=== PATIENT | female | born 1990 | race Caucasian/White ===

== ENCOUNTER 2020-04-13 20:45 | Emergency (ER) | payer MEDICAID, SELFPAY ==
[2020-04-13 20:52] VITALS: BP 164/113; PULSE 80; RESP 18; TEMP 36.8; O2SAT 96; BMI 42.2
--- NOTE | 2020-04-14 00:15 | ED_ITS ---
HPI - Dizziness General: Chief Complaint: Dizziness Stated Complaint: DIZZY Time Seen by Provider: 04/14/20 00:07 Source: patient Mode of arrival: ambulatory Limitations: no limitations History of Present Illness: HPI Narrative: Patient went and seen Radha Trimble. Patient was started on 3 different medications and became really anxious with her medications that she was started on. Patient was placed on Wellbutrin 150 twice a day, escitalopram 10 mg daily, and propranolol 20 mg twice a day. Patient stopped the Wellbutrin because it increased her anxiety. Patient was c oncerned due to her blood pressure being 160 systolic. She came into the ER for evaluation due to her elevation in her blood pressure. Review of Systems General: Reports: 10 or more systems reviewed and unremarkable except in HPI and below Psych: Reports: anxiety PFSH ED PFSH: Medical History (Updated 04/14/20 @ 00:22 by KISHAN Hansen) Asthma History of miscarriage twins Surgical History (Updated 04/11/20 @ 17:09 by SHAWN Andujar) History of cholecystectomy 2013 History of dilation and curettage Family History Other Cancer Dementia Heart disease Hypertension Social History Smoking and tobacco status: current every day smoker Second hand smoke exposure: Yes Smoking risk assessment/counseling performed?: Yes Alcohol intake: unknown Desire information about alcohol rehabilitation?: No Counseling given: No Desire information about substance/drug rehabilitation?: No Counseling given: No Adopted: No Caregiver/support person: No Lives independently: Yes Household members: significant other Marital status: Legally Number of children: 5 service: No Current occupational status: unemployed History of recent travel: No Current gender identity: Female Female Reproductive History: Date of last menstrual period: 04/02/20 Para: 2 Spontaneous abortions: Yes (4) Physical Exam Const: COMMON NORMALS: no acute distress and patient oriented x3 GENERAL APPEARANCE: cooperative HENMT: COMMON NORMALS: normocephalic and Normal external nose present HEAD & SCALP: normal to inspection and normocephalic NOSE: Normal external nose present Eye: GENERAL EYE: appearance normal, both eyes and all related structures Neck/C-Spine: COMMON NORMALS: full ROM Chest: COMMONS NORMALS: normal inspection of the chest Resp: COMMON NORMALS: normal respiratory effort EFFORT & INSPECTION: Yes able to speak in complete sentences Cardio: COMMON NORMALS: regular rate and regular rhythm RATE: regular rate RHYTHM: regular rhythm GI: COMMON NORMALS: non-tender Back/Pelvis: COMMON NORMALS: thoracic and lumbar spine normal to inspection Extremity: COMMON NORMALS: normal to inspection Neuro: COMMON NORMALS: patient oriented x3 and moves all extremities Psych: COMMON NORMALS: mental status grossly normal and cooperative Skin: COMMON NORMALS: no rashes or lesions noted GENERAL SKIN EXAM: no rashes or lesions noted Course Vital Signs: Vital signs: Vital Signs Temperature 98.3 F 04/13/20 20:52 Pulse Rate 78 04/14/20 00:20 Respiratory Rate 17 04/14/20 00:19 Blood Pressure 178/113 04/14/20 00:20 Pulse Oximetry 98 04/14/20 00:19 MDM - Dizziness MDM Narrative: Medical decision making narrative: Patient comes in today for concerns of elevation in her blood pressure after being started on new medication. Patient appears well. Respirations are even lungs are clear to auscultation. 5 anxiety patient has no other signs or symptoms. Vital signs were normal except for mild elevation of blood pressure at 164 systolic. Differential diagnosis includes but not limited to uncontrolled hypertension, anxiety, depression. Reviewed exam with patient with recommendations for smoking cessation, healthy diet and exercise, and weight loss. Recommended patient stop the Wellbutrin at this time due to her increased anxiety with it. Discussed continuing on the S-Citalopram and the propranolol. Discussed may be taken the propranolol just at bedtime at first due to feeling rundown with the medication when he first started. Patient then can increase to twice a day dosing as she becomes tolerant of the medication. Reassured patient that the blood pressure she will come down especially if she would work hard to stop smoking and to try to eat healthier and exercise more routinely. Patient reported understanding of care plan and agreed to plan. Discharge Plan Discharge Patient Disposition: Home Clinical Impression: Essential (primary) hypertension, Anxiety with depression Adverse reaction to drug Qualifiers: Encounter type: initial encounter Qualified Code(s): T50.905A - Adverse effect of unspecified drugs, medicaments and biological substances, initial encounter Condition: Stable Prescriptions: Discontinued bupropion HCl [Wellbutrin SR] 150 mg tablet sustained-release 12 hr 150 mg PO Q12H Qty: 60 RF: 0 No Action propranolol 20 mg tablet 20 mg PO BID Qty: 60 RF: 0 escitalopram oxalate [Lexapro] 10 mg tablet 10 mg PO DAILY Qty: 30 RF: 0 Referrals: Radha Trimble FNP-C [Primary Care Provider] - Discharge Diet: Usual diet Discharge Activity: Increase activity as tolerated Patient Instructions: Hypertension (ED) Activity Restrictions/Additional Instructions: Stop the Wellbutrin until follow-up with primary care. Continue with escitalopram and propranolol as instructed. Continue stopping smoking. Try to eat a healthier diet with more fruits and vegetables nuts and legumes. Follow- up with primary care as scheduled. Return to the emergency department for new concerns. Coding Level of Care Code ED Hard Tile Setter for Gennaro Pichardo Exam Comprehensive
[2020-04-14 00:19] VITALS: BP 178/108; PULSE 75; RESP 17; O2SAT 98
[2020-04-14 00:20] VITALS: BP 169/123; BP 178/113; BP 184/122; PULSE 78; PULSE 84; PULSE 90
[2020-04-14 01:04] VITALS: BP 175/100; PULSE 92; RESP 16; O2SAT 96
[2020-04-14] MEDS: LORazepam 1 mg Tablet 0.5 MG PO (01:35)
[2020-04-14 02:04] VITALS: BP 165/103; PULSE 81; RESP 16; O2SAT 96
[2020-04-14 02:10] VITALS: BP 158/107; PULSE 72; RESP 15; O2SAT 96
== END 2020-04-14 02:09 | disposition home or self-care (01) ==
PROVIDERS: Emergency Provider Nurse Practitioner Family; PCP Nurse Practitioner
DX: I10 Essential (primary) hypertension (principal); F41.8 Other specified anxiety disorders; T50.905A Adverse effect of unspecified drugs, medicaments and biological substances, initial encounter; F17.210 Nicotine dependence, cigarettes, uncomplicated
CPT/HCPCS: 12345; 99282; 99283

== ENCOUNTER → 2020-04-20 11:17 | Outpatient (BNVA) | payer MEDICAID, SELFPAY | PROVIDERS: PCP Nurse Practitioner; Visit Provider Nurse Practitioner | DX: G89.29 Other chronic pain (principal); M54.2 Cervicalgia; M54.9 Dorsalgia, unspecified | CPT/HCPCS: 72040; 72100 ==

== ENCOUNTER → 2020-05-04 14:19 | Outpatient (BNVA) | payer MEDICAID, SELFPAY | PROVIDERS: PCP Nurse Practitioner; Visit Provider Nurse Practitioner Family | DX: L03.114 Cellulitis of left upper limb (principal); M25.522 Pain in left elbow | CPT/HCPCS: 73080; 85025 ==

== ENCOUNTER → 2020-07-12 11:04 | Outpatient (BNVA) | payer MEDICAID, SELFPAY | PROVIDERS: PCP Nurse Practitioner; Visit Provider Nurse Practitioner Family | DX: I10 Essential (primary) hypertension (principal); Z79.899 Other long term (current) drug therapy | CPT/HCPCS: 80053; 80061; 84443; 85025 ==

== ENCOUNTER 2020-09-06 14:55 | Outpatient (CLI) | payer MEDICAID, SELFPAY ==
--- NOTE | 2020-09-06 15:00 | USCV_ITS ---
Ilene Echevarria Age: 29 Gender: F : 1990 Exam Date: 09/06/2020 15:09 Ordering Phys: Rose Marie Kimball MD ([email or web address]) Technologist: Rianna Chacko Exam Location: [facility] [place] Indication: OTHER CHEST PAIN BP: 131 / 64 HR: 80 Rhythm: Sinus Technical Quality: Suboptimal MEASUREMENTS (Male / Female) Normal Values 2D ECHO LV Diastolic Diameter PLAX 4.0 cm 4.2 - 5.9 / 3.9 - 5.3 cm LV Systolic Diameter PLAX 3.0 cm IVS Diastolic Thickness 0.9 cm 0.6 - 1.0 / 0.6 - 0.9 cm IVS Systolic Thickness 0.9 cm LVPW Diastolic Thickness 1.5 cm 0.6 - 1.0 / 0.6 - 0.9 cm LVPW Systolic Thickness 1.8 cm LVOT Diameter 2.0 cm LV Ejection Fraction 2D Teich 49.7 % LV Ejection Fraction MOD 2C 74.4 % LV Ejection Fraction 2C AL 74.3 % LA Diameter 3.1 cm LA Width 3.4 cm LA Height 4.0 cm RA Width 2.9 cm RA Height 3.7 cm Aorta at Sinotubular Diameter 2.9 cm M-MODE LV Diastolic Diameter MM 4.0 cm 4.2 - 5.9 / 3.9 - 5.3 cm LV Systolic Diameter MM 2.3 cm LV Ejection Fraction MM Teich 74.3 % IVS Diastolic Thickness MM 1.4 cm 0.6 - 1.0 / 0.6 - 0.9 cm IVS Systolic Thickness MM 1.9 cm LVPW Diastolic Thickness MM 1.8 cm 0.6 - 1.0 / 0.6 - 0.9 cm LVPW Systolic Thickness MM 1.3 cm Aortic Annulus Diameter 3.0 cm LA Ao Ratio MM 1.1 MV E Point Septal Separation 0.8 cm DOPPLER AV Peak Velocity 129.0 cm/s LVOT Peak Velocity 110.0 cm/s AV Area Cont Eq vti 2.6 cm squared AV Area Cont Eq pk 2.5 cm squared MV Area PHT 5.0 cm squared Mitral E to A Ratio 1.0 MV E' Velocity 43.0 cm/s Mitral E to MV E' Ratio 4.1 Mitral E to LV E' Lateral Ratio 4.0 Mitral E to LV E' Septal Ratio 4.1 TR Peak Velocity 181.0 cm/s TR Peak Gradient 13.1 mmHg TV Peak E Velocity 71.0 cm/s Right Atrial Pressure 3.0 mmHg Pulmonary Artery Systolic Pressu 16.1 mmHg PV Peak Velocity 63.0 cm/s RV Acceleration Time 0.1 s RV Ejection Time 0.3 s RV AcT/ET 0.5 FINDINGS Left Ventricle Normal left ventricular size and systolic function, EF 77 %. No regional wall motion abnormalities. Right Ventricle The right ventricle is normal in size and function. Right Atrium The right atrium is normal in size. Left Atrium The left atrium is normal in size. Mitral Valve No gross abnormalities noted Aortic Valve No gross abnormalities noted Tricuspid Valve Trace tricuspid valve regurgitation. Pulmonic Valve Pulmonic valve not well visualized. Pericardium Normal pericardium without effusion. Aorta Normal ascending aorta dimension. CONCLUSIONS Normal left ventricular size and systolic function, EF 77 %. No regional wall motion abnormalities. Trace tricuspid valve regurgitation. There is no pericardial effusion. There are no intracardiac masses. No previous study is available for comparison. Dr Rose Marie Kimball MD FACC (Electronically Signed) Final Date: 07 September 2020 10:04 S
== END 2020-09-06 14:56 | disposition home or self-care (01) ==
PROVIDERS: PCP Nurse Practitioner; Visit Provider Internal Medicine Cardiovascular Disease
DX: R07.89 Other chest pain (principal)
CPT/HCPCS: 93306

== ENCOUNTER → 2020-10-24 16:15 | Outpatient (BNVA) | payer MEDICAID, SELFPAY | PROVIDERS: PCP Nurse Practitioner; Visit Provider Internal Medicine Cardiovascular Disease | DX: R07.89 Other chest pain (principal); R06.00 Dyspnea, unspecified; I50.33 Acute on chronic diastolic (congestive) heart failure; I10 Essential (primary) hypertension | CPT/HCPCS: 80048; 83880 ==

== ENCOUNTER 2020-10-31 08:19 | Outpatient (CLI) | payer MEDICAID, SELFPAY ==
[2020-10-31 08:38] VITALS: BMI 42.5
[2020-10-31 08:47] VITALS: BP 153/45; PULSE 99
--- NOTE | 2020-10-31 09:15 | ECG_ITS ---
[facility] Test Date: 2020-10-31 Pat Name: Ilene Echevarria Department: Room: Gender: Female Seed Analyst: Triny Warren : 1990 Requested By: Rose Marie Kimball Order Number: [id number] Randolph MD: Rose Marie Kimball M.D. Interpretive Statements NAME OF STUDY: TREADMILL STRESS TEST INDICATION: Chest Pain, PROCEDURE: At the baseline, the patient's blood pressure was 100/56 with a heart rate of 90. The baseline electrocardiogram showed normal sinus rhythm with some nonspecific T wave changes. Poor R wave progression. The patient exercised for 5 minutes and 9 seconds on a modified Jaylan protocol. Patient attained a maximum heart rate of 165 beats per minute(85% of the maximum predicted heart rate) with a blood pressure at the peak exercise of 166/68 mm Hg. The EKG at the peak exercise revealed diffuse nonspecific ST-T changes. Patient did not have any chest pain or any significant cardiac arrhythmias with the exercise During the recovery phase, there were no new changes. Blood pressure at the end of the recovery phase was 144/63 mm Hg with a heart rate of 99 per minute. CONCLUSION: 1. Nonspecific EKG response to treadmill exercise 2. No exercise-induced chest pain or cardiac arrhythmia 3. Impaired exercise tolerance, attained a maximum of 6.1 METs Electronically Signed On 11-10-2020 8:54:07 CDT by Rose Marie Kimball M.D. [email or web address]
== END 2020-10-31 08:20 | disposition home or self-care (01) ==
LOC: CDL 08:20
PROVIDERS: PCP Nurse Practitioner; Visit Provider Internal Medicine Cardiovascular Disease
DX: R07.9 Chest pain, unspecified (principal)
CPT/HCPCS: 93017

== ENCOUNTER 2020-12-05 13:53 | Outpatient (CLI) | payer MEDICAID, SELFPAY ==
--- NOTE | 2020-12-05 14:15 | USCV_ITS ---
Ilene Echevarria Age: 30 Gender: F : 1990 Exam Date: 12/05/2020 14:28 Ordering Phys: Petra Avila PROGRAM COUNSELOR-Lance Technologist: BRIAN Exam Location: [facility] [place] Indication: PRIOR RT ANKLE FX. WITH ORIF. NOW PAIN AND AT TIME COLDNESS Risk Factors: Unknown Previous Vascular Surgery: ORIF RT ANKLE FX RIGHT LEFT BP: 124.0 / 54.00 BP: 104.0/ 44.00 0 0 Waveform Velocity (cm/s) Velocity (cm/s) Waveform Triphasic 194.1 Iliac Prox Biphasic Iliac Mid 194.1 Monophasic 144.7 Iliac Distal Triphasic 158.4 WOMEN'S SWIM COACH Triphasic 143.0 SFA Prox Biphasic 131.1 SFA Mid Biphasic 103.3 SFA Dist Triphasic POP 67.0 Biphasic 85.4 REGIONAL ACCOUNT MANAGER Biphasic 105.0 DPA 0.9 SHELDON FINDINGS RT REGIONAL ACCOUNT MANAGER 110 RT DPA 100 Resting SHELDON of 0.9 on the right side. CONCLUSIONS 1. Slightly diminished resting SHELDON . 8 9 on the right side, may size to mild obstructive arterial disease. No previous studies are available for comparison Dr Rose Marie Kimball MD [facility] (Electronically Signed) Final Date: 05 December 2020 18:48 S
--- NOTE | 2020-12-05 15:00 | XRR_ITS ---
PROCEDURE INFORMATION: Exam: XR Right Ankle Exam date and time: 12/05/2020 2:01 PM Age: 30 years old Clinical indication: Ankle and foot; Left; Prior surgery; Patient HX: RT ankle pain per patient; Additional info: M25.572 - pain in left ankle and joints of left foot TECHNIQUE: Imaging protocol: XR Right ankle. Views: 3 or more views. COMPARISON: CR Ankle 3 views, RIGHT* [id number] 03/03/2016 6:32 PM FINDINGS: Bones/joints: There is a comminuted interarticular displaced fracture of the distal shaft and metaphysis of the tibia. Transverse displaced fracture is seen in the distal shaft of the fibula. The patient is status post ORIF with metallic plate and screws in place in the tibia and fibula. The bones show anatomic alignment. Soft tissues: Normal. XR/XR ankle RT min 3V* [id number] IMPRESSION: 1. Comminuted displaced fractures tibia and fibula status post ORIF. 2. Otherwise negative examination
== END 2020-12-05 13:54 | disposition home or self-care (01) ==
PROVIDERS: PCP Nurse Practitioner; Visit Provider Nurse Practitioner Family
DX: M25.572 Pain in left ankle and joints of left foot (principal); L81.9 Disorder of pigmentation, unspecified; M79.89 Other specified soft tissue disorders; S82.201A Unspecified fracture of shaft of right tibia, initial encounter for closed fracture; S82.401A Unspecified fracture of shaft of right fibula, initial encounter for closed fracture; X58.XXXA Exposure to other specified factors, initial encounter
CPT/HCPCS: 73610; 93926

== ENCOUNTER → 2021-03-28 13:44 | Outpatient (BNVA) | payer MEDICAID, SELFPAY | PROVIDERS: PCP Nurse Practitioner; Visit Provider Nurse Practitioner Family | DX: I10 Essential (primary) hypertension (principal); E78.5 Hyperlipidemia, unspecified; F41.8 Other specified anxiety disorders | CPT/HCPCS: 80053; 80061; 84443; 85025 ==

== ENCOUNTER 2021-05-17 11:24 | Outpatient (CLI) | payer MEDICAID, SELFPAY ==
--- NOTE | 2021-05-17 11:45 | US_ITS ---
WS: [id number] INDICATION: Splinter in wrist TECHNIQUE: Ultrasound soft tissue area of concern right wrist. FINDINGS: No evidence of echogenic foreign body or object. No evidence of abscess or drainable fluid collection. No free fluid. No suspicious findings. US/US soft tissue/extremity [id number] IMPRESSION: No suspicious findings
== END 2021-05-17 11:25 | disposition home or self-care (01) ==
LOC: US 11:26
PROVIDERS: PCP Nurse Practitioner Family; Visit Provider Nurse Practitioner Family
DX: M79.639 Pain in unspecified forearm (principal); M79.89 Other specified soft tissue disorders
CPT/HCPCS: 76882

== ENCOUNTER → 2021-06-20 13:22 | Outpatient (BNVA) | payer MEDICAID, SELFPAY | PROVIDERS: PCP Nurse Practitioner Family; Visit Provider Nurse Practitioner | DX: R05.9 Cough, unspecified (principal); Z20.822 Contact with and (suspected) exposure to COVID-19 | CPT/HCPCS: 87426 ==

== ENCOUNTER → 2021-06-22 10:41 | Outpatient (BNVA) | payer MEDICAID, SELFPAY | PROVIDERS: PCP Nurse Practitioner Family; Visit Provider Nurse Practitioner | DX: R05.9 Cough, unspecified (principal); R09.89 Other specified symptoms and signs involving the circulatory and respiratory systems; Z20.822 Contact with and (suspected) exposure to COVID-19 | CPT/HCPCS: 87635 ==

== ENCOUNTER 2021-09-26 12:35 | Emergency (ER) | payer MEDICAID, SELFPAY ==
[2021-09-26 12:56] VITALS: BP 151/84; PULSE 93; RESP 16; TEMP 36.6; O2SAT 97
--- NOTE | 2021-09-26 13:17 | USCV_ITS ---
Ilene Echevarria Age: 30 Gender: F : 1990 Exam Date: 09/26/2021 13:40 Ordering Phys: Luzmaria Asher Technologist: FEDERICO Exam Location: [facility] – [place] Indication: Leg swelling / patient claims feeling knot in LT lower leg HISTORY: Leg swelling / patient claims feeling knot in LT lower leg PROCEDURES: Venous duplex imaging was performed in only the left lower extremity. The following venous structures were evaluated: common femoral vein, profunda vein, proximal portion of the greater saphenous vein, superficial femoral vein, and the popliteal vein. In addition, the posterior tibial and peroneal trunk were evaluated. FINDINGS: Normal 2-D Doppler and augmentation and compressibility throughout the lower extremity venous structures. Additional imaging through the proximal calf veins also reveals no thrombus. Limited evaluation of the greater saphenous vein is patent with no thrombus. CONCLUSIONS No DVT left lower extremity. Dr. Huma Soliz DO (Electronically Signed) Final Date: 26 September 2021 15:43 S
--- NOTE | 2021-09-26 13:17 | ED_ITS ---
HPI - Extremity Problem General: Chief complaint: Extremity Problem,Nontraumatic Stated complaint: L leg hard spot, pain when touched Time Seen by Provider: 09/26/21 13:03 Source: patient Mode of arrival: ambulatory Limitations: no limitations History of Present Illness: Patient is a 30-year-old female presents to ED today with complaints of swelling to her left lower extremity and a knot . She states symptoms been present over the past 3 days. No previous history of blood clots. She is not on hormones. No periods of prolonged inactivity. No recent surgeries. She does not complain of shortness of breath. She has not noticed any redness or warmth to the extremity. States she was sent here from PCP for US. MD Complaint: extremity pain and extremity swelling Onset (ago): day(s) Pain Consistency: constant Location: left and lower extremity Radiation: none Associated symptoms: Reports no associated symptoms; Deny chest pain or fever(s) Review of Systems Const: Denies: fever(s), chills, body aches, fatigue or malaise Card: Denies: chest pain Resp: Denies: dyspnea GI: Denies: abdominal pain Musc: Reports: extremity pain and extremity swelling; Denies: joint pain, joint swelling, joint redness or joint warmth Skin/Breast: Denies: new lesions or changes in skin color Neuro: Denies: numbness in extremities, weakness in extremities, sensory changes or difficulty walking PFS ED PFSH: Medical History Asthma History of miscarriage twins Hx of hyperlipidemia Nonspecific ST-T wave electrocardiographic changes The EKG from today revealed normal sinus rhythm with some nonspecific T wave changes. Normal QRS duration. Normal ID interval and no signs of any preexcitation. Surgical History History of cholecystectomy 2013 History of dilation and curettage History of fracture right lower leg, rods and screws Family History Mother Cancer Diabetes Grandmother Cancer Father Diabetes Hypertension Hyperlipidemia Denies family history of CAD (coronary artery disease) Clotting disorder Dementia Heart disease Chronic kidney disease (CKD) Suicide Anesthesia complication Bleeding disorder Family history of premature coronary artery disease Lung disease Stroke Social History Smoking and tobacco status: current every day smoker Second hand smoke exposure: Yes Smoking risk assessment/counseling performed?: Yes Alcohol intake: former Desire information about alcohol rehabilitation?: No Counseling given: No Desire information about substance/drug rehabilitation?: No Counseling given: No Adopted: No Caregiver/support person: No Lives independently: Yes Household members: significant other Marital status: Legally Number of children: 5 service: No Current occupational status: unemployed History of recent travel: No Current gender identity: Female Female Reproductive History: Para: 2 Spontaneous abortions: Yes (4) Physical Exam Const: COMMON NORMALS: no acute distress, patient oriented x3, no limitations and alert GENERAL APPEARANCE: cooperative NUTRITIONAL APPEARANCE: obese ORIENTATION/CONSCIOUSNESS: Yes awake, Yes oriented to person, Yes oriented to place and Yes oriented to time Resp: COMMON NORMALS: normal respiratory effort and clear to auscultation bilaterally AUSCULTATION: clear to auscultation bilaterally Cardio: COMMON NORMALS: regular rate and regular rhythm RATE: regular rate RHYTHM: regular rhythm Extremity: LEFT LOWER EXTREMITY: Yes lower leg OTHER: I do not appreciate any obvious swelling to her L LE; her calf is supple with a negative Alfonso's; she reports tenderness to her anterior tibial shaft and states she can feel a knot here; I don't appreciate any palpable cords; no r edness/warmth; NV intact Neuro: COMMON NORMALS: patient oriented x3 SENSORIUM/ORIENTATION: Yes alert, Yes oriented to person, Yes oriented to place and Yes oriented to time Course Vital Signs: Vital signs: Vital Signs Temperature 97.8 F 09/26/21 12:56 Pulse Rate 105 H 09/26/21 13:22 Respiratory Rate 18 09/26/21 13:22 Blood Pressure 137/79 09/26/21 13:22 Pulse Oximetry 97 09/26/21 13:22 MDM - Extremity (Nontraumatic) Medical Decision Making No abnormalities detected on US. Recommend conservative tx and follow up with PCP. Return to ED precautions verbally given to patient. Imaging Data US L LE venous: Radiologist's impression: per US tech-no DVT, no superficial thrombus, no abnormalities noted to area of patient discomfort Discharge Plan Discharge Patient Disposition: Home Clinical Impression: Pain in left leg Condition: Stable Prescriptions: No Action gabapentin 100 mg capsule 100 mg PO TID 0RF buprenorphine HCl 8 mg tablet, sublingual 8 mg sublingual TID 0RF ibuprofen 800 mg tablet 800 mg PO Q12H PRN (Reason: pain) Qty: 60 2RF potassium chloride [Klor-Con 10] 10 mEq tablet extended release 10 meq PO DAILY 30 Days Qty: 30 2RF magnesium oxide 400 mg magnesium tablet 400 mg PO BID 30 Days Qty: 60 2RF losartan 50 mg tablet 50 mg PO DAILY 30 Days Qty: 30 2RF chlorthalidone 25 mg tablet 25 mg PO DAILY 30 Days Qty: 30 2RF buspirone 30 mg tablet 30 mg PO BID PRN (Reason: anxiety) 30 Days Qty: 60 2RF labetalol 100 mg tablet 100 mg PO BID Qty: 180 3RF Discharge Orders: Discharge ED (Routine); Ordered 09/26/21 Ordered By: Luzmaria Asher Referrals: Petra Avila FNP-C [Primary Care Provider] - Coding Level of Care Code ED Senior Radiation Therapist for Chg Fwd Exam Expanded Problem Focused
[2021-09-26 13:22] VITALS: BP 137/79; PULSE 105; RESP 18; O2SAT 97
== END 2021-09-26 15:25 | disposition home or self-care (01) ==
PROVIDERS: Emergency Provider Physician Assistant; PCP Nurse Practitioner Family
DX: M79.605 Pain in left leg (principal); E78.5 Hyperlipidemia, unspecified; F17.210 Nicotine dependence, cigarettes, uncomplicated
CPT/HCPCS: 93971; 99283

== ENCOUNTER 2021-10-02 20:00 | Outpatient (CLI) | payer MEDICAID, SELFPAY | END 2021-10-02 20:01 | disposition home or self-care (01) | LOC: SLEEP 10-03 09:07 | PROVIDERS: PCP Nurse Practitioner Family; Visit Provider Nurse Practitioner Family | DX: G47.10 Hypersomnia, unspecified (principal) | CPT/HCPCS: 95810 ==

== ENCOUNTER 2021-10-04 14:02 | Outpatient (CLI) | payer MEDICAID, SELFPAY ==
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
--- NOTE | 2021-10-04 14:18 | XR_ITS ---
WS: [id number] XR thoracic spine 3V* [id number] REASON FOR EXAM: M54.9 - Dorsalgia, unspecified FINDINGS: Normal thoracic spine alignment. No focal vertebral body abnormality. Normal intervertebral disc spaces. XR/XR thoracic spine 3V* [id number] IMPRESSION: No significant abnormality.
== END 2021-10-04 14:03 | disposition home or self-care (01) ==
PROVIDERS: PCP Nurse Practitioner Family; Visit Provider Nurse Practitioner Family
DX: M54.9 Dorsalgia, unspecified (principal); S13.4XXA Sprain of ligaments of cervical spine, initial encounter; V89.2XXA Person injured in unspecified motor-vehicle accident, traffic, initial encounter
CPT/HCPCS: 72040; 72072

== ENCOUNTER → 2021-12-04 13:40 | Outpatient (BNVA) | payer MEDICAID, SELFPAY | PROVIDERS: PCP Nurse Practitioner Family; Visit Provider Nurse Practitioner Family | DX: M25.562 Pain in left knee (principal) | CPT/HCPCS: 73562 ==

== ENCOUNTER 2022-01-01 16:59 | Outpatient (CLI) | payer MEDICAID, SELFPAY ==
[2022-01-01 17:46] LABS: Basophils # 0.1 10^3/uL (0.0-0.1); Basophils % 0.8 %; Eosinophils # 0.2 10^3/uL (0.0-0.8); Eosinophils % 2.4 %; Hematocrit 39.7 % (37.0-47.0); Hemoglobin 13.6 g/dL (11.5-15.3); Lymphocytes # 2.6 10^3/uL (0.8-4.8); Lymphocytes % 25.9 %; Mean Corpuscular HGB Conc 34.3 g/dL (30.0-36.0); Mean Corpuscular Hemoglobin 30.3 pg (28.0-34.0); Mean Corpuscular Volume 88.4 fl (81-99); Mean Platelet Volume 9.4 fL (7.4-10.4); Monocytes # 0.6 10^3/uL (0.2-0.9); Monocytes % 5.7 %; Neutrophils # 6.61 10^3/uL (1.8-7.7); Nucleated Red Blood Cells % 0 %; Platelet Count 377 10^3/cmm (130-400); Red Blood Count 4.49 10^6/uL (4.1-5.3); Red Cell Distribution Width 13.1 % (12.1-15.1); White Blood Count 10.2 10^3/uL (4.0-10.0)
[2022-01-01 18:29] LABS: Alanine Aminotransferase 30 U/L (0-33); Albumin Level 4.3 g/dL (3.5-5.2); Alkaline Phosphatase 99 IU/L (35-105); Anion Gap 17.2 (5-19); Aspartate Amino Transferase 23 U/L (0-32); Blood Urea Nitrogen 12 mg/dL (6-20); Calcium 9.9 mg/dL (8.5-10.5); Carbon Dioxide 21 mmol/L (22-29); Chloride 103 mmol/L (98-107); Chol HDL Ratio 9.33 mg/dL (0.0-4.40); Cholesterol 280 mg/dL (0-200); Globulin 3.4 g/dL (1.3-4.6); Glomerular Filtration Rate 118.2 mL/min (90-130); Glucose 80 mg/dL (65-115); HDL Cholesterol 30 mg/dL (60-100); Osmolality Calculated 283 mOsm/kg (285-295); Potassium 4.2 mmol/L (3.5-5.1); Sodium 137 mmol/L (136-145); Thyroid Stimulating Hormone 2.29 uIU/mL (0.27-4.20); Total Bilirubin 0.2 mg/dL (0.15-1.2); Total Protein 7.7 g/dL (6.6-8.7); Triglycerides 529 mg/dL (0-150); VLDL Cholestrol Calculation 106 mg/dL (0-30); Vitamin B12 565 pg/mL (232-1245)
[2022-01-01 18:43] LABS: LDL Cholesterol Direct 165 mg/dL (0-100)
== END 2022-01-01 17:00 | disposition home or self-care (01) ==
LOC: LAB 17:01
PROVIDERS: Nurse Practitioner Family; PCP Nurse Practitioner; Visit Provider Nurse Practitioner
DX: I10 Essential (primary) hypertension (principal)
CPT/HCPCS: 36415; 80053; 80061; 82607; 83721; 84443; 85025

== ENCOUNTER 2022-05-18 16:20 | Outpatient (CLI) | payer MEDICAID, SELFPAY ==
[2022-05-18 18:02] LABS: Alanine Aminotransferase 15 U/L (0-33); Albumin Level 4.2 g/dL (3.5-5.2); Alkaline Phosphatase 88 U/L (35-105); Anion Gap 17.4 (5-19); Aspartate Amino Transferase 15 U/L (0-32); Blood Urea Nitrogen 12 mg/dL (6-20); Calcium 9.2 mg/dL (8.5-10.5); Carbon Dioxide 20 mmol/L (22-29); Chloride 103 mmol/L (98-107); Chol HDL Ratio 8.88 mg/dL (0.0-4.40); Cholesterol 284 mg/dL (0-200); Globulin 3.9 g/dL (1.3-4.6); Glomerular Filtration Rate 98.9 mL/min (90-130); Glucose 81 mg/dL (65-115); HDL Cholesterol 32 mg/dL (60-100); LDL Cholesterol Calculated 214 mg/dL (50-129); Osmolality Calculated 281 mOsm/kg (285-295); Potassium 4.4 mmol/L (3.5-5.1); Sodium 136 mmol/L (136-145); Thyroid Stimulating Hormone 1.48 uIU/mL (0.27-4.20); Total Bilirubin 0.2 mg/dL (0.15-1.2); Total Protein 8.1 g/dL (6.6-8.7); Triglycerides 191 mg/dL (0-150); VLDL Cholestrol Calculation 38 mg/dL (0-30)
== END 2022-05-18 16:21 | disposition home or self-care (01) ==
LOC: LAB 16:22
PROVIDERS: PCP Nurse Practitioner; Visit Provider Nurse Practitioner
DX: R00.0 Tachycardia, unspecified (principal); E78.2 Mixed hyperlipidemia
CPT/HCPCS: 80053; 80061; 84443

== ENCOUNTER → 2022-07-16 14:09 | Outpatient (BNVA) | payer MEDICAID, SELFPAY | PROVIDERS: PCP Nurse Practitioner; Visit Provider Nurse Practitioner | DX: E78.2 Mixed hyperlipidemia (principal); E88.81 Metabolic syndrome and other insulin resistance | CPT/HCPCS: 80053; 80061; 85025 ==

== ENCOUNTER → 2022-08-02 15:50 | Outpatient (BNVA) | payer MEDICAID, SELFPAY | PROVIDERS: PCP Nurse Practitioner; Visit Provider Nurse Practitioner | DX: J02.9 Acute pharyngitis, unspecified (principal); Z20.822 Contact with and (suspected) exposure to COVID-19; R11.2 Nausea with vomiting, unspecified | CPT/HCPCS: 87426; 87486; 87581; 87633; 87880 ==

== ENCOUNTER → 2022-10-03 14:21 | Outpatient (BNVA) | payer MEDICAID, SELFPAY | PROVIDERS: PCP Nurse Practitioner; Visit Provider Nurse Practitioner Family | DX: M79.604 Pain in right leg (principal); Z87.81 Personal history of (healed) traumatic fracture | CPT/HCPCS: 73590 ==

== ENCOUNTER → 2022-10-31 11:29 | Outpatient (BNVA) | payer MEDICAID, SELFPAY | PROVIDERS: PCP Nurse Practitioner; Referring Provider Nurse Practitioner Family; Visit Provider Specialist | DX: T84.84XA Pain due to internal orthopedic prosthetic devices, implants and grafts, initial encounter (principal); Y79.2 Prosthetic and other implants, materials and accessory orthopedic devices associated with adverse incidents; M25.571 Pain in right ankle and joints of right foot; G89.29 Other chronic pain; M79.671 Pain in right foot | CPT/HCPCS: 73590; 73630; 99205 ==

== ENCOUNTER → 2022-12-18 14:44 | Outpatient (BNVA) | payer MEDICAID, SELFPAY | PROVIDERS: PCP Nurse Practitioner; Visit Provider Nurse Practitioner | DX: N91.2 Amenorrhea, unspecified (principal) | CPT/HCPCS: 81025 ==

== ENCOUNTER 2022-12-21 18:03 | Emergency (ER) | payer MEDICAID, SELFPAY ==
--- NOTE | 2022-12-21 18:04 | USR_ITS ---
PROCEDURE INFORMATION: Exam: US Duplex Left Lower Extremity Veins, Limited Exam date and time: 12/21/2022 6:31 PM Age: 32 years old Clinical indication: Pain; Leg, lower; Left; Additional info: Swelling TECHNIQUE: Imaging protocol: Real-time duplex ultrasound of the left extremity with 2-D rodriguez scale, color Doppler flow and spectral waveform analysis including responses to compression and other maneuvers (when performed) with image documentation. Limited exam focused on the left lower extremity veins. COMPARISON: US soft tissue/extremity [id number] 05/17/2021 11:34 AM FINDINGS: Left deep veins: Unremarkable. The common femoral, femoral, proximal profunda femoral and popliteal veins are patent without thrombus. Normal Doppler waveforms. Normal compressibility and/or augmentation response. Left superficial veins: Unremarkable. Saphenofemoral junction is patent without thrombus. Soft tissues: Subcutaneous edema noted in the lower [place]. US/[place] [id number] IMPRESSION: No evidence of deep vein thrombosis.
[2022-12-21 18:11] VITALS: BP 130/77; PULSE 84; RESP 16; TEMP 36.8; O2SAT 100; BMI 40.4
[2022-12-21 20:13] LABS: Partial Thromboplastin Time 23.3 SECONDS (23.9-36.7)
[2022-12-21 20:18] LABS: Alanine Aminotransferase 15 U/L (0-33); Alkaline Phosphatase 73 U/L (35-105); Blood Urea Nitrogen 7 mg/dL (6-20); C Reactive Protein 3.3 mg/L (0.0-4.9); Calcium 8.7 mg/dL (8.5-10.5); Carbon Dioxide 20 mmol/L (22-29); Chloride 104 mmol/L (98-107); Creatinine Clr Calc Pharmacy 140.3747; Globulin 3.1 g/dL (1.3-4.6); Glomerular Filtration Rate 117.4 mL/min (90-130); Glucose 78 mg/dL (65-115); Osmolality Calculated 281 mOsm/kg (285-295); Sodium 137 mmol/L (136-145); Total Bilirubin 0.2 mg/dL (0.15-1.2); Total Protein 7.1 g/dL (6.6-8.7)
[2022-12-21 20:20] LABS: Aspartate Amino Transferase 21 U/L (0-32)
--- NOTE | 2022-12-21 20:26 | W.ED.EXTPRO ---
HPI - Extremity Problem General: Chief complaint: Extremity Problem,Nontraumatic Stated complaint: Left Calf Pain Time Seen by Provider: 12/21/22 18:50 Source: patient Mode of arrival: EMS Limitations: no limitations History of Present Illness: Patient presents emergency department today accompanied by her father for evaluation treatment of left leg pain and swelling as well as right hand and right forearm pain and swelling. Patient reports she is 4 weeks and had a positive test at home. She went to go see her primary care office today for complaints of her arm and leg pain but, as they were limited on labs and imaging, recommended she come to the emergency department for an evaluation. Patient denies any known trauma but, has been clearing out brush on their property over the last several days. Patient has multiple scrapes and small dry, rashy areas on her upper extremities from the brush. She states she has not been having any fever. She denies any chest pain but sometimes feels somewhat short of air. Patient denies any abdominal pains. She denies any vaginal bleeding. Patient states that she drove to the EMS dispatch building and took an ambulance from there to the emergency room. Review of Systems General: Reports: 10 or more systems reviewed and unremarkable except in HPI and below PFSH ED PFSH: Medical History Asthma History of methamphetamine use History of miscarriage twins Hx of hyperlipidemia Hyperlipidemia, mixed Migraine Nonspecific ST-T wave electrocardiographic changes The EKG from today revealed normal sinus rhythm with some nonspecific T wave changes. Normal QRS duration. Normal CO interval and no signs of any preexcitation. Surgical History History of cholecystectomy 2013 History of dilation and curettage History of fracture right lower leg, rods and screws Family History Mother Cancer Diabetes Grandmother Cancer Father Diabetes Hypertension Hyperlipidemia Denies family history of CAD (coronary artery disease) Clotting disorder Dementia Heart disease Chronic kidney disease (CKD) Suicide Anesthesia complication Bleeding disorder Family history of premature coronary artery disease Lung disease Stroke Social History Smoking and tobacco status: current every day smoker Second hand smoke exposure: Yes Smoking risk assessment/counseling performed?: Yes Alcohol intake: former Desire information about alcohol rehabilitation?: No Counseling given: No Substance/Drug Use: former Desire information about substance/drug rehabilitation?: No Counseling given: No Adopted: No Caregiver/support person: No Lives independently: Yes Household members: significant other Marital status: Legally Number of children: 5 service: No Current occupational status: unemployed Do you think of yourself as: Straight/Heterosexual Current gender identity: Female Female Reproductive History: Para: 2 Spontaneous abortions: Yes (6) Physical Exam Const: COMMON NORMALS: no acute distress, average body habitus and patient oriented x3 HENMT: COMMON NORMALS: normocephalic, atraumatic, hearing grossly normal bilaterally, Normal external nose present and moist oral mucous membranes HEAD & SCALP: normocephalic and atraumatic NOSE: Normal external nose present Eye: COMMON NORMALS: Equal, round and reactive pupils present, EOMs intact bilaterally and conjunctivae normal CONJUNCTIVA: Yes conjunctivae normal PUPIL: Yes Equal, round and reactive pupils present Neck/C-Spine: COMMON NORMALS: no JVD Lymph: LYMPHATIC: no lymphadenopathy noted Resp: COMMON NORMALS: normal respiratory effort, No retractions and No use of accessory muscles Cardio: COMMON NORMALS: no JVD, regular rate and regular rhythm RATE: regular rate RHYTHM: regular rhythm GI: COMMON NORMALS: Normal to inspection, nondistended, normoactive bowel sounds present : COMMON NORMALS: Yes no CVA tenderness BLADDER/KIDNEY EXAM: Yes no CVA tenderness Back/Pelvis: COMMON NORMALS: no CVA tenderness and thoraco-lumbar ROM normal Extremity: COMMON NORMALS: normal to inspection, full ROM and capillary refill normal Neuro: COMMON NORMALS: patient oriented x3 Psych: COMMON NORMALS: mental status grossly normal, Normal thought process present, cooperative, normal affect and activity/motor behavior normal THOUGHT PROCESS: Normal thought process present Skin: NARRATIVE SKIN EXAM: Patient does have some generalized swelling to the right forearm and dorsum of the hand. Patient has approximately 4-5 superficial, scabbed abrasions to the dorsum of her right hand without signs of active bleeding. No significant erythema to the forearm or hand. Patient has a circumferential bruise noted to her right mid forearm. Patient does have some swelling noted to the left lower extremity without pitting edema. No erythema appreciated. No significant size difference between the right lower extremity. Course Vital Signs: Vital signs: Vital Signs Temperature 98.3 F 12/21/22 18:11 Pulse Rate 84 12/21/22 18:11 Respiratory Rate 16 12/21/22 18:11 Blood Pressure 130/77 12/21/22 18:11 Pulse Oximetry 100 12/21/22 18:11 Oxygen Delivery Me thod Room Air 12/21/22 18:11 MDM - Extremity (Nontraumatic) Medical Decision Making Patient presented to the emergency department at the request of her primary care doctor for lab work and imaging. Patient's ultrasound ruled out DVT in the left lower extremity. There is no significant color change, temperature change, or any pitting edema noted on the examination. There is no specific tenderness or signs of trauma to the lower extremity. Patient's right upper extremity is somewhat swollen but, there are multiple scrapes noted to the dorsum of the right hand. Patient indicated she was moving brush and believes she was scratched by thorns. Explained that there are certain thorns that do cause a reaction due to them being poisonous and can cause pain and swelling in the region affected. At this time, patient does not have a significant concern for severe cellulitis or abscess in this area. However, could be an early onset. Patient still has mobility of the fingers and had good cap refill. She also had movement at the wrist and elbow without difficulty. I was somewhat concerned at the bruising which appear to be circumferential in the patient's right forearm. I did ask if someone had grabbed her-even if to try and catch her to keep her from falling off something. She indicated no one had grabbed her arm or harmed her in any way. Patient's lab work is generally unremarkable however, she had significant findings of urinary tract infection as she had 4+ bacteria and positive nitrites. Patient did not have any findings of significant specimen contamination. For that reason, I did try and find an antibiotic to cover urinary tract infection, skin infection and was safe in that aligned with her medication allergies. Patient's chart review showed that she had a Rocephin injection last year and she reports no issues with the injection. Patient was started on Keflex with the first dose being provided here in the emergency room tonight. She was also given a dose of Claritin to help with potential hypersensitivity reaction to potential contact irritant on her right hand from working in brush. She states she has an appointment with her doctor on Saturday and I requested she get a repeat urinalysis to assure improvement of the bacterial findings. However, she was given strict return precautions for fever, abdominal pain, vaginal bleeding, hematuria, or back pains. Differential Diagnosis Likely cellulitis, superficial thrombophlebitis, lower extremity edema and deep vein thrombosis of lower extremity Lab Data 12/21/22 20:20 12/21/22 19:35 Radiology Impressions Venous Duplex 12/21/22 18:04 IMPRESSION: No evidence of deep vein thrombosis. Laboratory Results WBC 12.3 10^3/uL (4.0-10.0) H 12/21/22 20:20 Corrected WBC Cancelled 12/21/22 19:35 RBC 3.65 10^6/uL (4.1-5.3) L 12/21/22 20:20 Hgb 10.9 g/dL (11.5-15.3) L 12/21/22 20:20 Hct 32.5 % (37.0-47.0) L 12/21/22 20:20 MCV 89.0 fl (81-99) 12/21/22 20:20 MCH 29.9 pg (28.0-34.0) 12/21/22 20:20 MCHC 33.5 g/dL (30.0-36.0) 12/21/22 20:20 RDW 12.6 % (12.1-15.1) 12/21/22 20:20 Plt Count 289 10^3/cmm (130-400) 12/21/22 20:20 MPV 9.4 fL (7.4-10.4) 12/21/22 20:20 Gran % Cancelled 12/21/22 19:35 Neut % (Auto) 75.3 % 12/21/22 20:20 Lymph % (Auto) 18.0 % 12/21/22 20:20 [place] % (Auto) 4.0 % 12/21/22 20:20 Eos % (Auto) 1.9 % 12/21/22 20:20 Baso % (Auto) 0.5 % 12/21/22 20:20 Neut # (Auto) 9.30 10^3/uL (1.8-7.7) H 12/21/22 20:20 Lymph # (Auto) 2.2 10^3/uL (0.8-4.8) 12/21/22 20:20 [place] # (Auto) 0.5 10^3/uL (0.2-0.9) 12/21/22 20:20 Eos # (Auto) 0.2 10^3/uL (0.0-0.8) 12/21/22 20:20 Baso # (Auto) 0.1 10^3/uL (0.0-0.1) 12/21/22 20:20 Absolute Gran (auto) Cancelled 12/21/22 19:35 Nucleated RBC % (auto) 0 % 12/21/22 20:20 Nucleated RBCs # 0.0 /100WBC 12/21/22 20:20 ESR 6 mm/hr (0-15) 12/21/22 20:20 PT 13.50 SECONDS (12.1-14.9) 12/21/22 19:35 INR 1.00 (0.8-1.2) 12/21/22 19:35 APTT 23.3 SECONDS (23.9-36.7) L 12/21/22 19:35 Sodium 137 mmol/L (136-145) 12/21/22 19:35 Potassium 4.0 mmol/L (3.5-5.1) 12/21/22 19:35 Chloride 104 mmol/L (98-107) 12/21/22 19:35 Carbon Dioxide 20 mmol/L (22-29) L 12/21/22 19:35 Anion Gap 17.0 (5-19) 12/21/22 19:35 BUN 7 mg/dL (6-20) 12/21/22 19:35 Creatinine 0.6 mg/dL (0.5-0.9) 12/21/22 19:35 GFR Calculation 117.4 mL/min (90-130) 12/21/22 19:35 Glucose 78 mg/dL (65-115) 12/21/22 19:35 Calculated Osmolality 281 mOsm/kg (285-295) L 12/21/22 19:35 Calcium 8.7 mg/dL (8.5-10.5) 12/21/22 19:35 Total Bilirubin 0.2 mg/dL (0.15-1.2) 12/21/22 19:35 AST 21 U/L (0-32) 12/21/22 19:35 ALT 15 U/L (0-33) 12/21/22 19:35 Alkaline Phosphatase 73 U/L (35-105) 12/21/22 19:35 C-Reactive Protein 3.3 mg/L (0.0-4.9) 12/21/22 19:35 Total Protein 7.1 g/dL (6.6-8.7) 12/21/22 19:35 Albumin 4.0 g/dL (3.5-5.2) 12/21/22 19:35 Globulin 3.1 g/dL (1.3-4.6) 12/21/22 19:35 HCG, Qual Positive (Negative) H 12/21/22 20:20 Urine Color Yellow (Yellow) 12/21/22 20:20 Urine Appearance Clear (CLEAR) 12/21/22 20:20 Urine pH 8 (5-7) H 12/21/22 20:20 Ur Specific [place] 1.010 (1.005-1.030) 12/21/22 20:20 Urine Protein Neg (Negative) 12/21/22 20:20 Urine Glucose (UA) Norm (Normal) 12/21/22 20:20 Urine Ketones Negative (Negative) 12/21/22 20:20 Urine Blood Neg (Negative) 12/21/22 20:20 Urine Nitrate Positive (Negative) H 12/21/22 20:20 Urine Bilirubin Neg (Negative) 12/21/22 20:20 Prot Sulfosalicylic Acd Negative (Negative) 12/21/22 20:20 Urine Urobilinogen Norm mg/dL (Negative) 12/21/22 20:20 Ur Leukocyte Esterase Negative (Negative) 12/21/22 20:20 Urine RBC 0-4 /hpf (0-2) H 12/21/22 20:20 Urine WBC 0-4 /hpf (0-5) H 12/21/22 20:20 Ur Squamous Epith Cells 0-4 /hpf (0-5) H 12/21/22 20:20 Amorphous Sediment Not Reportable 12/21/22 20:20 Urine Bacteria 4+ /hpf (NONE) H 12/21/22 20:20 Discharge Plan Discharge Patient Disposition: Home Clinical Impression: UTI (urinary tract infection) during , Localized swelling of right forearm, Acute pain of left lower extremity Condition: Stable Prescriptions: New cephalexin 500 mg capsule 500 mg PO Q8H 10 Days Qty: 30 0RF Allergy Relief (loratadine) 10 mg tablet 10 mg PO DAILY Qty: 10 0RF Allergy (diphenhydramine) 25 mg tablet See Rx Instructions .ROUTE .COMPLEX Qty: 20 0RF Rx Instructions: take 1-2 tabs every 6 hours as needed for swelling No Action buprenorphine HCl 8 mg tablet, sublingual 8 mg sublingual TID magnesium oxide 400 mg magnesium tablet 400 mg PO BID 30 Days Qty: 60 2RF Prenatabs Rx 29 mg iron- 1 mg tablet 1 tab PO DAILY Qty: 30 11RF triamcinolone acetonide 0.1 % ointment 1 applic topical BID Qty: 80 0RF Rx Instructions: apply to arms and legs hydroxyzine HCl 25 mg tablet 25 mg PO TID PRN (Reason: itching) Qty: 30 0RF labetalol 100 mg tablet 100 mg PO BID Qty: 180 3RF Discharge Orders: Discharge ED (Routine); Ordered 12/21/22 Ordered By: Denia Ovalles Referrals: Radha Trimble, [facility] [Primary Care Provider] - Discharge Diet: Usual diet Discharge Activity: Increase activity as tolerated Patient Instructions: Allergic Reaction, Urinary Tract Infection in (ED) Activity Restrictions/Additional Instructions: The ultrasound of your left leg showed no signs of any acute blood clot. Examination of your right arm shows generalized soft tissue swelling including the dorsum of your hand which contains several scratches. It is possible that you came into contact with a thorn bee-several are somewhat poisonous and can cause an allergic type reaction in people. However, it can also cause secondary infection from the scratches. You also have findings of a significant urinary tract infection. Between treatment for potential skin infection, urinary tract infection, and your allergies, we will treat with Keflex. This antibiotic is in the same family as Rocephin which appears to have been provided to you for an infection last year without any issues. I am also giving you some antihistamines to help with swelling and allergic reaction. Loratadine is nondrowsy but, the Benadryl can make you feel very tired and fatigued. You may wish to stay Benadryl for before bed or, anytime you know you will be home without any prior engagements that you need to attend that day. You can apply cool compresses to your forearm as well. Watch for any continued swelling of your right upper extremity or left lower extremity. Watch for any redness or fever. If you develop any mid back pain, abdominal pains, blood in your urine, vaginal bleeding or fevers you need to return to the emergency department. Keep your upcoming appointment with your doctor on Saturday for recheck of your urine to make sure symptoms and signs of infection are improving. Coding Level of Care Code ED [employer] for Gennaro Pichardo
[2022-12-21 20:29] LABS: Basophils # 0.1 10^3/uL (0.0-0.1); Basophils % 0.5 %; Eosinophils # 0.2 10^3/uL (0.0-0.8); Eosinophils % 1.9 %; Hematocrit 32.5 % (37.0-47.0); Hemoglobin 10.9 g/dL (11.5-15.3); Lymphocytes # 2.2 10^3/uL (0.8-4.8); Mean Corpuscular HGB Conc 33.5 g/dL (30.0-36.0); Mean Corpuscular Hemoglobin 29.9 pg (28.0-34.0); Mean Platelet Volume 9.4 fL (7.4-10.4); Monocytes # 0.5 10^3/uL (0.2-0.9); Neutrophils % 75.3 %; Nucleated Red Blood Cells % 0 %; Platelet Count 289 10^3/cmm (130-400); Red Blood Count 3.65 10^6/uL (4.1-5.3); Red Cell Distribution Width 12.6 % (12.1-15.1); White Blood Count 12.3 10^3/uL (4.0-10.0)
[2022-12-21 20:31] LABS: Erythrocyte Sedimentation Rate 6 mm/hr (0-15)
[2022-12-21 20:35] LABS: HCG Qualitative Urine. Positive (Negative)
[2022-12-21 20:48] LABS: Urine Appearance Clear (CLEAR); Urine Color Yellow (Yellow); pH Urine 8 (5-7)
[2022-12-21 20:49] LABS: Add Urine Culture? Yes; Add Urine Microscopic? YES; Bacteria Urine 4+ /hpf; Bilirubin Urine Neg (Negative); Blood Urine Neg (Negative); Glucose Urine UA Norm (Normal); Ketones Urine Negative (Negative); Leukocyte Esterase Urine Negative (Negative); Nitrate Urine Positive (Negative); Protein Urine Neg (Negative); RBC Urine 0-4 /hpf (0-2); Squamous Epithelial Cell Urine 0-4 /hpf (0-5); Sulfosalicylic Acid Urine Negative (Negative); Urobilinogen Urine Norm (Negative); WBC Urine 0-4 /hpf (0-5)
[2022-12-21] MEDS: cephALEXin 500 mg Capsule PO (21:30)
[2022-12-21] MEDS: loratadine 10 mg Tablet PO (21:49)
[2022-12-21 22:39] VITALS: PULSE 86; RESP 16; O2SAT 96
== END 2022-12-21 22:10 | disposition home or self-care (01) ==
PROVIDERS: Emergency Provider Physician Assistant; PCP Nurse Practitioner
DX: O23.41 Unspecified infection of urinary tract in pregnancy, first trimester (principal); N39.0 Urinary tract infection, site not specified; O9A.211 Injury, poisoning and certain other consequences of external causes complicating pregnancy, first trimester; Z3A.01 Less than 8 weeks gestation of pregnancy; S60.511A Abrasion of right hand, initial encounter; O26.891 Other specified pregnancy related conditions, first trimester; M79.89 Other specified soft tissue disorders; M79.605 Pain in left leg; O99.331 Smoking (tobacco) complicating pregnancy, first trimester; F17.210 Nicotine dependence, cigarettes, uncomplicated; E78.2 Mixed hyperlipidemia; X58.XXXA Exposure to other specified factors, initial encounter
CPT/HCPCS: 80053; 81001; 81025; 85025; 85610; 85651; 85730; 86140; 87077; 87086; 87186; 93971; 99284

== ENCOUNTER 2022-12-25 10:06 | Outpatient (CLI) | payer MEDICAID, SELFPAY ==
[2022-12-25 10:59] LABS: Hemoglobin 11.1 g/dL (11.5-15.3); Mean Corpuscular HGB Conc 33.6 g/dL (30.0-36.0); Mean Corpuscular Hemoglobin 29.5 pg (28.0-34.0); Mean Corpuscular Volume 87.8 fl (81-99); Mean Platelet Volume 9.1 fL (7.4-10.4); Platelet Count 316 10^3/cmm (130-400); Red Blood Count 3.76 10^6/uL (4.1-5.3); Red Cell Distribution Width 12.5 % (12.1-15.1); White Blood Count 9.6 10^3/uL (4.0-10.0)
[2022-12-25 11:30] LABS: Hepatitis B Surface Antigen Non-Reactive (Nonreactive)
[2022-12-25 11:32] LABS: Rubella IgG 112.9 IU/mL (0.0-10.0)
[2022-12-25 11:41] LABS: HIV 1 & 2 Antigen Non-Reactive (Non-Reactiv)
[2022-12-25 11:42] LABS: HIV 1 & 2 Antibody Non-Reactive (Non-Reactiv)
[2022-12-25 12:31] LABS: Hepatitis C Virus Antibody Reactive (Nonreactive)
[2022-12-27 23:35] LABS: HEP C RNA Viral Load Quant <1.18 NOT DETECTED Log IU/mL (NOT DETECTED); HEP C RNA Viral Load Quant <15 NOT DETECTED IU/mL (NOT DETECTED)
== END 2022-12-25 10:07 | disposition home or self-care (01) ==
LOC: LAB 10:08
PROVIDERS: PCP Nurse Practitioner; Visit Provider Obstetrics & Gynecology
DX: Z34.90 Encounter for supervision of normal pregnancy, unspecified, unspecified trimester (principal); Z3A.00 Weeks of gestation of pregnancy not specified
CPT/HCPCS: 36415; 84315; 85027; 86762; 86803; 86850; 86900; 87340; 87522; 87806

== ENCOUNTER → 2023-01-17 15:23 | Outpatient (BNVA) | payer MEDICAID, SELFPAY | PROVIDERS: PCP Nurse Practitioner; Visit Provider Obstetrics & Gynecology | DX: Z34.91 Encounter for supervision of normal pregnancy, unspecified, first trimester (principal); Z3A.09 9 weeks gestation of pregnancy; N83.202 Unspecified ovarian cyst, left side | CPT/HCPCS: 76801 ==

== ENCOUNTER 2023-02-09 20:40 | Emergency (ER) | payer MEDICAID, SELFPAY ==
[2023-02-09 20:54] VITALS: BP 114/63; PULSE 102; RESP 17; TEMP 36.6; O2SAT 97
--- NOTE | 2023-02-10 00:33 | XRR_ITS ---
PROCEDURE INFORMATION: Exam: XR Chest Exam date and time: 02/10/2023 1:01 AM Age: 32 years old Clinical indication: Other: Edema; Patient HX: Swollen legs. 11 weeks per PT. Shielded abd; Additional info: Fluid overload TECHNIQUE: Imaging protocol: Radiologic exam of the chest. Views: 1 view. COMPARISON: CR XR chest 1V [id number] 03/03/2016 6:37 PM FINDINGS: Lungs: There are bibasilar opacities which may represent superimposition of breast shadows, atelectasis, inflammation, or infection. Pleural spaces: Unremarkable. No pleural effusion. No pneumothorax. Heart/Mediastinum: The cardiomediastinal silhouette is stable in appearance. Bones/joints: Unremarkable. Soft tissues: No focal soft tissue abnormalities identified XR/XR chest 1V portable [id number] IMPRESSION: 1. Mild bibasilar opacities may represent superimposition of breast shadows, atelectasis, inflammation, or infection. 2. No large pleural effusion. 3. No pneumothorax.
--- NOTE | 2023-02-10 00:34 | ED_ITS ---
HPI - Extremity Problem General: Chief complaint: Extremity Problem,Nontraumatic Stated complaint: left foot injury Time Seen by Provider: 02/10/23 00:14 Source: patient Mode of arrival: ambulatory Limitations: no limitations History of Present Illness: Patient is a 32-year-old female at approximately 3 weeks here for complaints of bilateral right greater than left leg swelling. Patient states she has a longstanding history of lower extremity edema. She states 1 to 2 days ago she was head butted by a bull calf to her right lateral thigh and now feels like swelling to the right leg has worsened more so than her baseline. She does not complain of any shortness of breath or difficulty breathing. She has not noticed any color or temperature changes to the extremity. Denies numbness, tingling, weakness, loss of sensation. She is ambulatory without assistance or difficulty. MD Complaint: extremity pain and extremity swelling Onset (ago): day(s) Pain Consistency: constant Location: left, right and lower extremity Radiation: none Relieving factors: nothing Exacerbating factors: nothing Associated symptoms: Reports no associated symptoms; Deny chest pain or fever(s) Review of Systems Const: Denies: fever(s), chills, body aches, fatigue or malaise Card: Reports: swelling of feet/ankles; Denies: chest pain, palpitations, irregular heart rhythm, edema, lightheadedness, syncope, pre-syncope, dyspnea on exertion, orthopnea, leg pain with exertion or acrocyanosis Resp: Denies: dyspnea GI: Denies: abdominal pain : Denies: flank pain, difficulty voiding, dysuria, urinary frequency, urinary urgency, urinary hesitancy or hematuria Musc: Reports: extremity pain and extremity swelling; Denies: neck pain, back pain, joint pain, joint swelling, joint redness or joint warmth Skin/Breast: Reports: other (contusion R lateral thigh) Neuro: Denies: numbness in extremities, weakness in extremities or sensory changes PFSH ED 2 PFSH: Medical History Asthma History of methamphetamine use History of miscarriage twins Hx of hyperlipidemia Hyperlipidemia, mixed Migraine Nonspecific ST-T wave electrocardiographic changes The EKG from today revealed normal sinus rhythm with some nonspecific T wave changes. Normal QRS duration. Normal [place] interval and no signs of any preexcitation. Surgical History History of cholecystectomy 2013 History of dilation and curettage History of fracture right lower leg, rods and screws Family History Mother Cancer Diabetes Grandmother Cancer Father Diabetes Hypertension Hyperlipidemia Denies family history of CAD (coronary artery disease) Clotting disorder Dementia Heart disease Chronic kidney disease (CKD) Suicide Anesthesia complication Bleeding disorder Family history of premature coronary artery disease Lung disease Stroke Female Reproductive History: Para: 2 Spontaneous abortions: Yes (6) Physical Exam Const: COMMON NORMALS: no acute distress, patient oriented x3, no limitations and alert GENERAL APPEARANCE: cooperative NUTRITIONAL APPEARANCE: obese morbidly obese ORIENTATION/CONSCIOUSNESS: Yes awake, Yes oriented to person, Yes oriented to place and Yes oriented to time HENMT: COMMON NORMALS: normocephalic and atraumatic HEAD & SCALP: normal to inspection, normocephalic and atraumatic Neck/C-Spine: COMMON NORMALS: no JVD Chest: COMMONS NORMALS: normal inspection of the chest and normal palpation of entire chest wall Resp: COMMON NORMALS: normal respiratory effort and clear to auscultation bilaterally AUSCULTATION: clear to auscultation bilaterally Cardio: COMMON NORMALS: no JVD, regular rate and regular rhythm RATE: regular rate RHYTHM: regular rhythm GI: COMMON NORMALS: Normal to inspection, nondistended, normoactive bowel sounds present, Soft to palpation, non-tender, No hepatosplenomegaly present and no masses INSPECTION: Yes gravid abdomen PALPATION: Yes Soft to palpation and Yes No hepatosplenomegaly present : COMMON NORMALS: Yes no CVA tenderness BLADDER/KIDNEY EXAM: Yes no CVA tenderness Back/Pelvis: COMMON NORMALS: no CVA tenderness and thoracic and lumbar spine n ormal to inspection Extremity: GENERAL: Yes normal exam except as noted RIGHT LOWER EXTREMITY: Yes upper leg (mild tenderness/ecchymosis/contusion lateral thigh) OTHER: fairly significant bilateral R>L lower extremity edema; distal pulses and sensation normal; no color/temp changes appreciated Neuro: COMMON NORMALS: patient oriented x3, moves all extremities, no focal motor deficits and no sensory deficits noted SENSORIUM/ORIENTATION: Yes alert, Yes oriented to person, Yes oriented to place and Yes oriented to time Skin: COMMON NORMALS: no rashes or lesions noted GENERAL SKIN EXAM: no rashes or lesions noted Course Vital Signs: Vital signs: Vital Signs Temperature 98.1 F 02/10/23 04:22 Pulse Rate 98 02/10/23 04:22 Respiratory Rate 18 02/10/23 04:22 Blood Pressure 132/72 02/10/23 04:22 Pulse Oximetry 97 02/10/23 04:22 Oxygen Delivery Me thod Room Air 02/09/23 20:54 MDM - Extremity (Nontraumatic) Medical Decision Making US of her right lower extremity was ordered however we have not been able to get a hold of the customer technical services manager on-call. We have tried countless times and they will not answer their phone. Patient states she is tired of waiting and would like to go home. Her vital signs are stable. Blood work overall is unremarkable. She states she will follow-up with her primary care provider early this week or return to the emergency department for any worsening symptoms. Lab Data 02/10/23 00:55 02/10/23 00:55 Radiology Impressions Chest X-Ray 02/10/23 00:33 IMPRESSION: 1. Mild bibasilar opacities may represent superimposition of breast shadows, atelectasis, inflammation, or infection. 2. No large pleural effusion. 3. No pneumothorax. Laboratory Results WBC 9.9 10^3/uL (4.0-10.0) 02/10/23 00:55 Corrected WBC Cancelled 02/09/23 00:25 RBC 3.59 10^6/uL (4.1-5.3) L 02/10/23 00:55 Hgb 10.5 g/dL (11.5-15.3) L 02/10/23 00:55 Hct 31.7 % (37.0-47.0) L 02/10/23 00:55 MCV 88.3 fl (81-99) 02/10/23 00:55 MCH 29.2 pg (28.0-34.0) 02/10/23 00:55 MCHC 33.1 g/dL (30.0-36.0) 02/10/23 00:55 RDW 12.4 % (12.1-15.1) 02/10/23 00:55 Plt Count 266 10^3/cmm (130-400) 02/10/23 00:55 MPV 9.2 fL (7.4-10.4) 02/10/23 00:55 Gran % Cancelled 02/09/23 00:25 Neut % (Auto) 71.3 % 02/10/23 00:55 Lymph % (Auto) 18.3 % 02/10/23 00:55 [place] % (Auto) 6.0 % 02/10/23 00:55 Eos % (Auto) 3.4 % 02/10/23 00:55 Baso % (Auto) 0.5 % 02/10/23 00:55 Neut # (Auto) 7.06 10^3/uL (1.8-7.7) 02/10/23 00:55 Lymph # (Auto) 1.8 10^3/uL (0.8-4.8) 02/10/23 00:55 [place] # (Auto) 0.6 10^3/uL (0.2-0.9) 02/10/23 00:55 Eos # (Auto) 0.3 10^3/uL (0.0-0.8) 02/10/23 00:55 Baso # (Auto) 0.1 10^3/uL (0.0-0.1) 02/10/23 00:55 Absolute Gran (auto) Cancelled 02/09/23 00:25 Nucleated RBC % (auto) 0 % 02/10/23 00:55 Nucleated RBCs # 0.0 /100WBC 02/10/23 00:55 Sodium 136 mmol/L (136-145) 02/10/23 00:55 Potassium 3.8 mmol/L (3.5-5.1) 02/10/23 00:55 Chloride 102 mmol/L (98-107) 02/10/23 00:55 Carbon Dioxide 22 mmol/L (22-29) 02/10/23 00:55 Anion Gap 15.8 (5-19) 02/10/23 00:55 BUN 9 mg/dL (6-20) 02/10/23 00:55 Creatinine 0.5 mg/dL (0.5-0.9) 02/10/23 00:55 GFR Calculation 144.9 mL/min (90-130) H 02/10/23 00:55 Glucose 71 mg/dL (65-115) 02/10/23 00:55 Calculated Osmolality 279 mOsm/kg (285-295) L 02/10/23 00:55 Calcium 9.0 mg/dL (8.5-10.5) 02/10/23 00:55 NT-Pro-B Natriuret Pep 71 pg/mL (0-125) 02/10/23 00:55 Urine Color Yellow (Yellow) 02/10/23 01:52 Urine Appearance Clear (CLEAR) 02/10/23 01:52 Urine pH 7 (5-7) 02/10/23 01:52 Ur Specific [place] 1.015 (1.005-1.030) 02/10/23 01:52 Urine Protein Neg (Negative) 02/10/23 01:52 Urine Glucose (UA) Norm (Normal) 02/10/23 01:52 Urine Ketones 1+ (Negative) H 02/10/23 01:52 Urine Blood Neg (Negative) 02/10/23 01:52 Urine Nitrate Negative (Negative) 02/10/23 01:52 Urine Bilirubin Neg (Negative) 02/10/23 01:52 Urine Urobilinogen Norm mg/dL (Negative) 02/10/23 01:52 Ur Leukocyte Esterase Trace (Negative) H 02/10/23 01:52 Urine RBC None /hpf (0-2) 02/10/23 01:52 Urine WBC 0-4 /hpf (0-5) H 02/10/23 01:52 Ur Squamous Epith Cells 0-4 /hpf (0-5) H 02/10/23 01:52 Amorphous Sediment Not Reportable 02/10/23 01:52 Urine Bacteria 1+ /hpf (NONE) H 02/10/23 01:52 Discharge Plan Discharge Patient Disposition: Home Clinical Impression: Bilateral lower extremity edema Contusion of right thigh Qualifiers: Encounter type: initial encounter Qualified Code(s): S70.11XA - Contusion of right thigh, initial encounter Condition: Stable Prescriptions: No Action buprenorphine HCl 8 mg tablet, sublingual 8 mg sublingual TID diazepam [Valium] 2 mg tablet 2 mg PO DAILY PRN (Reason: anxiety) Qty: 30 2RF magnesium oxide 400 mg magnesium tablet 400 mg PO BID 30 Days Qty: 60 2RF Prenatabs Rx 29 mg iron- 1 mg tablet 1 tab PO DAILY Qty: 30 11RF triamcinolone acetonide 0.1 % ointment 1 applic topical BID Qty: 80 0RF Rx Instructions: apply to arms and legs hydroxyzine HCl 25 mg tablet 25 mg PO TID PRN (Reason: itching) Qty: 30 0RF labetalol 100 mg tablet 100 mg PO BID Qty: 180 3RF diazepam 2 mg tablet 2 mg PO BID PRN (Reason: anxiety) Qty: 30 0RF Allergy Relief (loratadine) 10 mg tablet 10 mg PO DAILY Qty: 10 0RF Allergy (diphenhydramine) 25 mg tablet See Rx Instructions .ROUTE .COMPLEX Qty: 20 0RF Rx Instructions: take 1-2 tabs every 6 hours as needed for swelling Discharge Orders: Discharge ED (Routine); Ordered 02/10/23 Ordered By: Luzmaria Asher Referrals: Radha Trimble, ANIMAL TREATMENT INVESTIGATOR-C [Primary Care Provider] - Coding Level of Care Code ED Sponge Diver for Gennaro Pichardo
[2023-02-10 01:09] LABS: Basophils # 0.1 10^3/uL (0.0-0.1); Basophils % 0.5 %; Eosinophils # 0.3 10^3/uL (0.0-0.8); Eosinophils % 3.4 %; Hematocrit 31.7 % (37.0-47.0); Hemoglobin 10.5 g/dL (11.5-15.3); Lymphocytes # 1.8 10^3/uL (0.8-4.8); Lymphocytes % 18.3 %; Mean Corpuscular HGB Conc 33.1 g/dL (30.0-36.0); Mean Corpuscular Hemoglobin 29.2 pg (28.0-34.0); Mean Corpuscular Volume 88.3 fl (81-99); Mean Platelet Volume 9.2 fL (7.4-10.4); Monocytes # 0.6 10^3/uL (0.2-0.9); Neutrophils # 7.06 10^3/uL (1.8-7.7); Neutrophils % 71.3 %; Nucleated Red Blood Cells % 0 %; Platelet Count 266 10^3/cmm (130-400); Red Blood Count 3.59 10^6/uL (4.1-5.3); Red Cell Distribution Width 12.4 % (12.1-15.1); White Blood Count 9.9 10^3/uL (4.0-10.0)
[2023-02-10 01:27] LABS: Anion Gap 15.8 (5-19); Blood Urea Nitrogen 9 mg/dL (6-20); Carbon Dioxide 22 mmol/L (22-29); Chloride 102 mmol/L (98-107); Glomerular Filtration Rate 144.9 mL/min (90-130); Glucose 71 mg/dL (65-115); NT Pro B Type Natriuretic Pept 71 pg/mL (0-125); Osmolality Calculated 279 mOsm/kg (285-295); Potassium 3.8 mmol/L (3.5-5.1); Sodium 136 mmol/L (136-145)
[2023-02-10 02:02] LABS: Bilirubin Urine Neg (Negative); Blood Urine Neg (Negative); Glucose Urine UA Norm (Normal); Ketones Urine 1+ (Negative); Nitrate Urine Negative (Negative); Protein Urine Neg (Negative); Specific Gravity, Urine 1.015 (1.005-1.030); Urine Appearance Clear (CLEAR); Urine Color Yellow (Yellow); Urobilinogen Urine Norm (Negative); pH Urine 7 (5-7)
[2023-02-10 02:03] LABS: Add Urine Microscopic? YES; Leukocyte Esterase Urine Trace (Negative)
[2023-02-10 02:04] LABS: Bacteria Urine 1+ /hpf; Squamous Epithelial Cell Urine 0-4 /hpf (0-5); WBC Urine 0-4 /hpf (0-5)
[2023-02-10] MEDS: acetaminophen 500 mg Tablet 1000 MG PO (03:17)
[2023-02-10 04:22] VITALS: BP 132/72; PULSE 98; RESP 18; TEMP 36.7; O2SAT 97
== END 2023-02-10 04:23 | disposition home or self-care (01) ==
PROVIDERS: Emergency Provider Physician Assistant; PCP Nurse Practitioner
DX: O9A.211 Injury, poisoning and certain other consequences of external causes complicating pregnancy, first trimester (principal); S70.11XA Contusion of right thigh, initial encounter; R60.0 Localized edema; E78.2 Mixed hyperlipidemia; Z3A.01 Less than 8 weeks gestation of pregnancy; O26.891 Other specified pregnancy related conditions, first trimester; W55.22XA Struck by cow, initial encounter
CPT/HCPCS: 36415; 71045; 80048; 81001; 83880; 85025; 99285

== ENCOUNTER → 2023-02-21 09:35 | Outpatient (BNVA) | payer MEDICAID, SELFPAY | PROVIDERS: PCP Nurse Practitioner; Visit Provider Obstetrics & Gynecology | DX: Z34.90 Encounter for supervision of normal pregnancy, unspecified, unspecified trimester (principal) | CPT/HCPCS: 82950; 84315; 86592 ==

== ENCOUNTER → 2023-03-05 14:43 | Outpatient (BNVA) | payer MEDICAID, SELFPAY | PROVIDERS: PCP Nurse Practitioner; Visit Provider Internal Medicine Cardiovascular Disease | DX: E78.2 Mixed hyperlipidemia (principal); I10 Essential (primary) hypertension; R94.31 Abnormal electrocardiogram [ECG] [EKG]; F17.200 Nicotine dependence, unspecified, uncomplicated | CPT/HCPCS: 99214 ==

== ENCOUNTER → 2023-04-04 09:10 | Outpatient (BNVA) | payer MEDICAID, SELFPAY | PROVIDERS: PCP Nurse Practitioner; Visit Provider Obstetrics & Gynecology | DX: O32.1XX0 Maternal care for breech presentation, not applicable or unspecified (principal); Z3A.20 20 weeks gestation of pregnancy | CPT/HCPCS: 76805 ==

== ENCOUNTER → 2023-04-08 15:11 | Outpatient (BNVA) | payer MEDICAID, SELFPAY | PROVIDERS: PCP Nurse Practitioner; Visit Provider Nurse Practitioner Family | DX: R00.0 Tachycardia, unspecified (principal); I10 Essential (primary) hypertension | CPT/HCPCS: 99213 ==

== ENCOUNTER 2023-05-08 09:40 | Outpatient (CLI) | payer MEDICAID, SELFPAY ==
[2023-05-08 10:57] LABS: Glucose Fasting 94 mg/dL (74-109)
[2023-05-08 11:35] LABS: Basophils # 0.1 10^3/uL (0.0-0.1); Basophils % 0.3 %; Eosinophils # 0.3 10^3/uL (0.0-0.8); Eosinophils % 1.7 %; Hematocrit 31.6 % (36-47); Mean Corpuscular HGB Conc 33.2 g/dL (30-55); Mean Corpuscular Hemoglobin 28.8 pg (27-33); Mean Corpuscular Volume 86.6 fl (85-98); Mean Platelet Volume 9.4 fL (7.4-10.4); Monocytes # 0.7 10^3/uL (0.2-0.9); Monocytes % 4.3 %; Neutrophils # 11.97 10^3/uL (1.8-7.7); Nucleated Red Blood Cells % 0 %; Platelet Count 311 10^3/cmm (157-399); Red Blood Count 3.65 10^6/uL (3.85-5.65); Red Cell Distribution Width 13.7 % (12.1-15.1); White Blood Count 14.98 10^3/uL (3.29-11.43)
[2023-05-08 11:54] LABS: Glucose Tolerance 1 Hour Gest 224 mg/dL (70-139)
== END 2023-05-08 09:41 | disposition home or self-care (01) ==
PROVIDERS: Obstetrics & Gynecology; PCP Nurse Practitioner; Visit Provider Family Medicine
DX: Z34.80 Encounter for supervision of other normal pregnancy, unspecified trimester (principal)
CPT/HCPCS: 36415; 82947; 82950; 85025

== ENCOUNTER → 2023-05-20 15:47 | Outpatient (BNVA) | payer MEDICAID, SELFPAY | PROVIDERS: PCP Nurse Practitioner; Visit Provider Obstetrics & Gynecology | DX: Z34.80 Encounter for supervision of other normal pregnancy, unspecified trimester (principal) | CPT/HCPCS: 76816; 80307 ==

== ENCOUNTER → 2023-06-12 10:35 | Outpatient (BNVA) | payer MEDICAID, SELFPAY | PROVIDERS: PCP Nurse Practitioner; Visit Provider Obstetrics & Gynecology | DX: Z34.80 Encounter for supervision of other normal pregnancy, unspecified trimester (principal) | CPT/HCPCS: 82950 ==

== ENCOUNTER → 2023-06-20 14:02 | Outpatient (BNVA) | payer MEDICAID, SELFPAY | PROVIDERS: PCP Nurse Practitioner; Visit Provider Obstetrics & Gynecology | DX: Z34.80 Encounter for supervision of other normal pregnancy, unspecified trimester (principal) | CPT/HCPCS: 76816; 84315 ==

== ENCOUNTER 2023-07-02 15:41 | Outpatient (CLI) | payer MEDICAID, SELFPAY ==
[2023-07-02 15:41] VITALS: BMI 43.4
[2023-07-02 16:01] VITALS: BP 126/65; PULSE 100
[2023-07-02 16:11] VITALS: RESP 16
[2023-07-02 16:16] VITALS: BP 123/59; PULSE 90
[2023-07-02 16:30] VITALS: BP 115/57; PULSE 91
[2023-07-02 17:00] VITALS: BP 115/57; PULSE 91
--- NOTE | 2023-07-02 17:00 | PC.NURSE ---
pt D/C at this time with reactive NST message left with Dr. Brandt.
--- NOTE | 2023-07-02 17:50 | PC.NURSE ---
Dr. Cosby notified of pt Reactive NST due to Dr. Brandt being unavailable.
== END 2023-07-02 17:00 | disposition home or self-care (01) ==
LOC: OPOB 15:46 → OBGYN 15:48
PROVIDERS: PCP Nurse Practitioner; Visit Provider Obstetrics & Gynecology
DX: O26.899 Other specified pregnancy related conditions, unspecified trimester (principal); Z3A.00 Weeks of gestation of pregnancy not specified
CPT/HCPCS: 59025; 99211

== ENCOUNTER 2023-07-05 15:40 | Outpatient (CLI) | payer MEDICAID, SELFPAY ==
[2023-07-05 15:40] VITALS: BMI 43.2
[2023-07-05 15:48] VITALS: BP 127/67; PULSE 86; TEMP 36.2
[2023-07-05 16:03] VITALS: BP 122/67; PULSE 91
== END 2023-07-05 16:18 | disposition home or self-care (01) ==
LOC: OPOB 15:42 → OBGYN 15:43
PROVIDERS: PCP Nurse Practitioner; Visit Provider Obstetrics & Gynecology
DX: O24.419 Gestational diabetes mellitus in pregnancy, unspecified control (principal); O16.9 Unspecified maternal hypertension, unspecified trimester; Z3A.00 Weeks of gestation of pregnancy not specified
CPT/HCPCS: 59025

== ENCOUNTER → 2023-07-08 14:11 | Outpatient (BNVA) | payer MEDICAID, SELFPAY | PROVIDERS: PCP Nurse Practitioner; Visit Provider Obstetrics & Gynecology | DX: Z34.90 Encounter for supervision of normal pregnancy, unspecified, unspecified trimester (principal); Z34.80 Encounter for supervision of other normal pregnancy, unspecified trimester | CPT/HCPCS: 76819 ==

== ENCOUNTER 2023-07-08 15:52 | Outpatient (CLI) | payer MEDICAID, SELFPAY ==
[2023-07-08 15:54] VITALS: BP 134/71; PULSE 88
[2023-07-08 15:55] VITALS: RESP 16
[2023-07-08 16:08] VITALS: BMI 43.0
[2023-07-08 16:10] VITALS: BP 133/61; PULSE 86
[2023-07-08 16:24] VITALS: BP 125/59; PULSE 88
== END 2023-07-08 16:30 | disposition home or self-care (01) ==
LOC: OPOB 15:53 → OBGYN 15:53
PROVIDERS: PCP Nurse Practitioner; Visit Provider Obstetrics & Gynecology
DX: O24.419 Gestational diabetes mellitus in pregnancy, unspecified control (principal); Z3A.00 Weeks of gestation of pregnancy not specified
CPT/HCPCS: 59025; 84315

== ENCOUNTER 2023-07-12 17:22 | Outpatient (CLI) | payer MEDICAID, SELFPAY ==
[2023-07-12 17:34] VITALS: BP 128/71; PULSE 103
[2023-07-12 17:39] VITALS: BMI 43.4
[2023-07-12 17:51] VITALS: RESP 17
[2023-07-12 17:54] VITALS: BP 127/70; PULSE 95
[2023-07-12 18:10] VITALS: BP 127/70; PULSE 95
[2023-07-23 08:14] VITALS: BP 131/64; PULSE 88
[2023-07-23 08:35] VITALS: BP 121/57; PULSE 87
== END 2023-07-12 18:10 | disposition home or self-care (01) ==
LOC: OPOB 17:24 → OBGYN 17:26
PROVIDERS: PCP Nurse Practitioner; Visit Provider Obstetrics & Gynecology
DX: O24.419 Gestational diabetes mellitus in pregnancy, unspecified control (principal); Z3A.00 Weeks of gestation of pregnancy not specified; O16.9 Unspecified maternal hypertension, unspecified trimester
CPT/HCPCS: 59025; 99211

== ENCOUNTER 2023-07-23 07:57 | Outpatient (CLI) | payer MEDICAID, SELFPAY ==
[2023-07-23 08:00] VITALS: RESP 18; BMI 44.9
--- NOTE | 2023-07-23 10:36 | PC.NURSE ---
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 Brandt. Was unable to get through to clinic staff. When pt arrived pt was sent away and told she did not need to be seen. Called clinic at : [phone], [phone], and [phone]
== END 2023-07-23 08:48 | disposition home or self-care (01) ==
LOC: OPOB 09:15 → OBGYN 09:19
PROVIDERS: PCP Nurse Practitioner; Visit Provider Obstetrics & Gynecology
DX: O24.419 Gestational diabetes mellitus in pregnancy, unspecified control (principal); O16.9 Unspecified maternal hypertension, unspecified trimester; Z3A.00 Weeks of gestation of pregnancy not specified
CPT/HCPCS: 59025

== ENCOUNTER → 2024-01-14 11:13 | Outpatient (BNVA) | payer BC, MEDICAID, SELFPAY | PROVIDERS: PCP Nurse Practitioner; Visit Provider Nurse Practitioner Family | DX: J02.9 Acute pharyngitis, unspecified (principal); R05.9 Cough, unspecified | CPT/HCPCS: 87071; 87400; 87426; 87486; 87581; 87633; 87880 ==

== ENCOUNTER 2024-06-09 10:56 | Outpatient (CLI) | payer BC, MEDICAID, SELFPAY ==
--- NOTE | 2024-06-09 11:01 | US_ITS ---
WS: [id number] DIAGNOSTIC BILATERAL DIGITAL BREAST TOMOSYNTHESIS MAMMOGRAPHY WITH CAD Bilateral breast ultrasound, limited HISTORY: N64.4 - Mastodynia COMPARISON: None available. TECHNIQUE: Bilateral craniocaudad, mediolateral oblique, and mediolateral views are submitted with to mosfreddy and BRANDIE. Spot compression RIGHT and LEFT CC and RIGHT MLO. Computer aided detection utiliz ed. Breast composition: There are scattered areas of fibroglandular density. No suspicious masses or calcification or distortion is identified. No skin thickening or nodularity. Markers are placed in the upper outer quadrants of each breast. There is no underlying abnormality. Bilateral breast ultrasound, limited. RIGHT: Ultrasound directed along the 8-9 o'clock axis as indicated by the patient. There is no underl ryan abnormality. LEFT: At 4:00, 3 cm the nipple is an nearly isoechoic indistinct mass or region measuring 1.5 x 1.3 x 0.9 cm. This corresponds to the palpable abnormality. This is nearly isoechoic to the adjacent breas t tissue with no increased vascularity. I suspect this may be an area of fat necrosis or resolving/re solved galactocele. This is an indeterminate asymmetry. US/US breast BI limited* [id number] IMPRESSION: BI-RADS: 4- Suspicious Finding - Biopsy Should be Considered FOLLOW UP: Biopsy Recommended Ultrasound-guided biopsy recommended of the isoechoic mass in the LEFT breast a t 4:00. This mass is palpable and painful. I favor this is probably to be an ar ea of fat necrosis or resolved galactocele. Recommend ultrasound-guided biopsy to exclude neoplasm. Notified SHAWN Andujar at 06/09/2024 1:49 PM. Discussed with Jeannine.
== END 2024-06-09 10:57 | disposition home or self-care (01) ==
LOC: RAD 10:56
PROVIDERS: PCP Nurse Practitioner; Visit Provider Nurse Practitioner
DX: N63.23 Unspecified lump in the left breast, lower outer quadrant (principal); N64.4 Mastodynia; R92.323 Mammographic fibroglandular density, bilateral breasts
CPT/HCPCS: 76642; 77062; G0279

== ENCOUNTER 2024-07-08 13:53 | Outpatient (CLI) | payer BC, MEDICAID, SELFPAY ==
--- NOTE | 2024-07-08 14:45 | US_ITS ---
WS: [id number] ULTRASOUND BREAST LEFT TECHNIQUE: Ultrasound left breast focused area of concern. CLINICAL INFORMATION: R92.8 - Other abnormal and inconclusive findings on diagn... COMPARISON: 06/09/2024 FINDINGS: Ultrasound LEFT breast area of concern at the 4 o'clock position 3 cm from the nipple. Only normal un derlying parenchymal tissue visualized today. Previously described echogenic lesion is not visualized and may have represented incidental lipomatous tissue or fat necrosis. No abnormalities visualized i n the area of pain. No abnormalities to target for biopsy today. Recommend 6-month follow-up ultrasou nd LEFT breast to ensure stability. No biopsy performed today. Findings discussed with patient. US/US breast LT limited* [id number] IMPRESSION: BI-RADS 3 probably benign 6-month follow-up LEFT breast ultrasound
== END 2024-07-08 13:54 | disposition home or self-care (01) ==
LOC: RAD 13:54
PROVIDERS: PCP Nurse Practitioner; Visit Provider Nurse Practitioner
DX: R92.8 Other abnormal and inconclusive findings on diagnostic imaging of breast (principal)
CPT/HCPCS: 76642

== ENCOUNTER → 2024-09-14 15:22 | Outpatient (BNVA) | payer BC, MEDICAID, SELFPAY | PROVIDERS: PCP Nurse Practitioner; Visit Provider Clinical Nurse Specialist Adult Health | DX: J02.9 Acute pharyngitis, unspecified (principal); J06.9 Acute upper respiratory infection, unspecified | CPT/HCPCS: 87880 ==

== ENCOUNTER → 2024-10-22 09:08 | Outpatient (BNVA) | payer BC, MEDICAID, SELFPAY | PROVIDERS: PCP Nurse Practitioner; Visit Provider Nurse Practitioner | DX: S86.912A Strain of unspecified muscle(s) and tendon(s) at lower leg level, left leg, initial encounter (principal); M25.462 Effusion, left knee; W19.XXXA Unspecified fall, initial encounter | CPT/HCPCS: 73562 ==

== ENCOUNTER 2024-10-27 14:34 | Emergency (ER) | payer BC, MEDICAID, SELFPAY ==
[2024-10-27 14:36] VITALS: BP 124/83; PULSE 81; RESP 22; TEMP 36.4; O2SAT 100
--- NOTE | 2024-10-27 14:39 | USCV_ITS ---
Ilene Echevarria Age: 34 Gender: F : 1990 Exam Date: 10/27/2024 15:10 Ordering Phys: Nery Goldberg MD Technologist: R Exam Location: [facility] [place]_ Indication: left leg pain HISTORY: Lower extremity pain. PROCEDURES: Venous duplex imaging was performed in only the left lower extremity. The following venous structures were evaluated: common femoral vein, profunda vein, proximal portion of the greater saphenous vein, superficial femoral vein, and the popliteal vein. In addition, the posterior tibial and peroneal trunk were evaluated. FINDINGS: Normal 2-D Doppler and augmentation and compressibility throughout the lower extremity venous structures. Additional imaging through the proximal calf veins also reveals no thrombus. Limited evaluation of the greater saphenous vein is patent with no thrombus. CONCLUSIONS No DVT left lower extremity. Dr. Huma Soliz DO (Electronically Signed) Final Date: 27 October 2024 16:13 S
--- NOTE | 2024-10-27 14:39 | XRR_ITS ---
PROCEDURE INFORMATION: Exam: XR Left Femur Exam date and time: 10/27/2024 2:47 PM Age: 34 years old Clinical indication: Injury or trauma; Fall; Blunt trauma; Thigh or upper leg; Left TECHNIQUE: Imaging protocol: Radiologic exam of the left femur. Views: 2 views. COMPARISON: CR XR knee LT 3V* [id number] 10/22/2024 9:15 AM FINDINGS: Bones/joints: Bones and joint spaces within normal limits. Soft tissues: Unremarkable. XR/XR femur LT min 2V* [id number] IMPRESSION: No significant pathology.
--- NOTE | 2024-10-27 14:39 | XRR_ITS ---
PROCEDURE INFORMATION: Exam: XR Left Knee Exam date and time: 10/27/2024 2:55 PM Age: 34 years old Clinical indication: Injury or trauma; Fall; Blunt trauma; Knee; Left TECHNIQUE: Imaging protocol: Radiologic exam of the left knee. Views: 3 views. COMPARISON: CR XR knee LT 3V* [id number] 10/22/2024 9:15 AM FINDINGS: Bones/joints: Small effusion. No acute fracture or dislocation. Bones and joint spaces within normal limits. Soft tissues: No significant soft tissue pathology. XR/XR knee LT 3V* [id number] IMPRESSION: Small joint effusion. No acute bony pathology.
--- NOTE | 2024-10-27 14:40 | W.ED.EXTPRO ---
HPI - Extremity Problem General: Chief complaint: Extremity Injury, Lower Stated complaint: Lt leg pain post fall x3 weeks ago Time Seen by Provider: 10/27/24 14:35 Source: patient and EMS Mode of arrival: EMS Limitations: no limitations History of Present Illness: 34-year-old female states she fell on the ice a few weeks ago and has been having left leg pain and swelling since and states she has pain in her femur and her knee states she had x-rays that were negative she denies any other injury she has been ambulatory but states it is painful to walk Associated symptoms: Deny chest pain, fever(s) or rash Related Data Home Medications ?Medication ?Instructions ?Recorded ?Confirmed buprenorphine HCl 8 mg sublingual 8 mg sublingual TID 10/24/20 10/27/24 tablet Lactobacillus rhamnosus GG 20 See Rx Instructions .Route .COMPLEX 10/27/24 10/27/24 billion cell capsule (Probiotic Digestive Care) diazepam 10 mg tablet 10 mg PO DAILY PRN Anxiety 10/27/24 10/27/24 gabapentin 300 mg capsule 300 mg PO TID PRN nerve pain 10/27/24 10/27/24 Previous Rx's ?Medication ?Instructions ?Recorded blood-glucose meter (Accu-Chek #1 ea 03/13/23 Guide Glucose Meter) blood sugar diagnostic (Accu-Chek #100 ea 04/17/23 Guide test strips) blood sugar diagnostic (OneTouch #100 ea 06/25/23 Ultra Test strips) vitamin E (dl, acetate) 180 mg 180 mg PO BID #60 caps 04/16/24 (400 unit) capsule magnesium oxide 400 mg PO BID 30 days #60 tabs 09/01/24 metformin 500 mg tablet,extended 1,000 mg (2 x 500 mg) PO DAILY #60 09/01/24 release 24 hr tabs metoprolol succinate 100 mg 100 mg PO DAILY #30 tabs 09/01/24 tablet,extended release 24 hr (Toprol XL) norethindrone (contraceptive) 0.35 0.35 mg PO DAILY #28 tabs 09/01/24 mg tablet potassium chloride 8 mEq 8 meq PO DAILY #30 caps 09/01/24 capsule,extended release torsemide 10 mg tablet 10 mg PO QAM #30 tabs 09/01/24 ibuprofen 800 mg tablet 800 mg PO Q12H PRN pain #60 tabs 10/21/24 mupirocin 2 % topical ointment 1 applic topical BID #15 grams 10/21/24 Allergies Allergy/AdvReac Type Severity Reaction Status Date / Time coby Allergy Severe ADR-Swelling Verified 10/21/24 15:52 of the Eye naloxone Allergy Severe ALGY-Hives Verified 10/21/24 15:52 Penicillins Allergy Severe ALGY-Hives Verified 10/21/24 15:52 sulfa drugs Allergy Severe ALGY-Hives Uncoded 10/21/24 15:52 Review of Systems Const: Denies: fever(s), chills, body aches or change in appetite ENMT: Denies: throat pain or dental pain Card: Denies: chest pain Resp: Denies: dyspnea GI: Denies: abdominal pain, nausea, vomiting or diarrhea : Denies: dysuria Musc: Reports: extremity pain and extremity swelling; Denies: neck pain or back pain Skin/Breast: Denies: rash Neuro: Denies: headache(s) PFSH ED PFSH: Medical History Hyperlipidemia, mixed Migraine History of methamphetamine use Nonspecific ST-T wave electrocardiographic changes The EKG from today revealed normal sinus rhythm with some nonspecific T wave changes. Normal QRS duration. Normal [place] interval and no signs of any preexcitation. Hx of hyperlipidemia Asthma History of miscarriage twins Surgical History History of fracture right lower leg, rods and screws History of dilation and curettage History of cholecystectomy 2012 Family History Mother Cancer Diabetes Grandmother Cancer Father Diabetes Hypertension Hyperlipidemia Denies family history of CAD (coronary artery disease) Clotting disorder Dementia Heart disease Chronic kidney disease (CKD) Suicide Anesthesia complication Bleeding disorder Family history of premature coronary artery disease Lung disease Stroke Social History Smoking and tobacco/nicotine status: current every day tobacco/nicotine user (no plan to stop) Second hand smoke exposure: No Alcohol intake: unknown Substance/Drug Use: former Adopted: No Caregiver/support person: No Lives independently: Yes Household members: significant other Housing: Manufactured/Mobile home Number of children: 1 service: No Current occupational status: unemployed Do you think of yourself as: Straight/Heterosexual Current gender identity: Female Female Reproductive History: Para: 2 Spontaneous abortions: Yes (6) Physical Exam Const: COMMON NORMALS: no acute distress, patient oriented x3 and healthy appearing HENMT: COMMON NORMALS: normocephalic and atraumatic HEAD & SCALP: normocephalic and atraumatic Neck/C-Spine: COMMON NORMALS: full ROM and supple Chest: COMMONS NORMALS: normal inspection of the chest Resp: COMMON NORMALS: normal respiratory effort Cardio: COMMON NORMALS: regular rate, regular rhythm and No murmurs present (Cardio) RATE: regular rate RHYTHM: regular rhythm Extremity: COMMON NORMALS: full ROM NARRATIVE EXTREMITY EXAM: Some slight swelling to the left leg with tenderness to her knee and femur no obvious deformity distal pulses intact Neuro: COMMON NORMALS: patient oriented x3, moves all extremities and no focal motor deficits Psych: COMMON NORMALS: mental status grossly normal, Normal thought process present and cooperative THOUGHT PROCESS: Normal thought process present Skin: COMMON NORMALS: no rashes or lesions noted and no wounds GENERAL SKIN EXAM: no rashes or lesions noted Course Vital Signs: Vital signs: Vital Signs Temperature 97.6 F 10/27/24 14:36 Pulse Rate 81 10/27/24 14:36 Respiratory Rate 22 H 10/27/24 14:36 Blood Pressure 124/83 10/27/24 14:36 Pulse Oximetry 100 10/27/24 14:36 Oxygen Delivery Me thod Room Air 10/27/24 14:36 MDM - Extremity (Nontraumatic) Medical Decision Making Patient presents here with left leg pain after a fall 3 weeks ago x-rays here are negative she had some swelling to ultrasound showed no DVT she is to follow-up with her PCP will Demarcus wrap she is to rest ice treat with ibuprofen she understands agrees to plan Medical Records I reviewed the patient's medical records. Lab Data Radiology Impressions Femur X-Ray 10/27/24 14:39 IMPRESSION: No significant pathology. Knee X-Ray 10/27/24 14:39 IMPRESSION: Small joint effusion. No acute bony pathology. All radiology interpretation(s) finalized by discharge Discharge Plan Discharge Patient Disposition: Home Clinical Impression: Leg pain, left Condition: Stable Prescriptions: No Action buprenorphine HCl 8 mg tablet, sublingual 8 mg sublingual TID vitamin E (dl, acetate) 180 mg (400 unit) capsule 180 mg PO BID Qty: 60 0RF metformin 500 mg tablet extended release 24 hr 1,000 mg PO DAILY Qty: 60 2RF magnesium oxide 400 mg magnesium tablet 400 mg PO BID 30 Days Qty: 60 2RF metoprolol succinate [Toprol XL] 100 mg tablet extended release 24 hr 100 mg PO DAILY Qty: 30 2RF norethindrone (contraceptive) 0.35 mg tablet 0.35 mg PO DAILY Qty: 28 11RF potassium chloride 8 mEq capsule, extended release 8 meq PO DAILY Qty: 30 2RF torsemide 10 mg tablet 10 mg PO QAM Qty: 30 2RF ibuprofen 800 mg tablet 800 mg PO Q12H PRN (Reason: pain) Qty: 60 0RF mupirocin 2 % ointment 1 applic topical BID Qty: 15 0RF (DME) blood-glucose meter [Accu-Chek Guide Glucose Meter] Misc See Rx Instructions .Route Qty: 1 0RF Rx Instructions: As directed (DME) Accu-Chek Guide test strips Strip See Rx Instructions .Route Qty: 100 3RF Rx Instructions: As directed (DME) OneTouch Ultra Test Strip See Rx Instructions .Route Qty: 100 3RF Rx Instructions: check fasting and 1 hour after each meal gabapentin 300 mg capsule 300 mg PO TID PRN (Reason: nerve pain) diazepam 10 mg tablet 10 mg PO DAILY PRN (Reason: Anxiety) Probiotic Digestive Care 20 billion cell capsule See Rx Instructions .ROUTE .COMPLEX Rx Instructions: Take 1 capsule by mouth twice daily. Discharge Orders: Discharge ED (Routine); Ordered 10/27/24 Ordered By: Nery Goldberg Referrals: Radha Trimble, COMMUNITY OUTREACH WORKER-C [Primary Care Provider] - 4-7 days Discharge Diet: Advance as tolerated Discharge Activity: Resume usual activity Patient Instructions: Leg Pain (ED) Print Language: Mongolian Coding Level of Care Code ED Professor Of History for Gennaro Pichardo
[2024-10-27 15:31] VITALS: BP 134/67; PULSE 71; O2SAT 96
== END 2024-10-27 15:33 | disposition home or self-care (01) ==
PROVIDERS: Emergency Provider Emergency Medicine; PCP Nurse Practitioner
DX: M79.605 Pain in left leg (principal); Z79.84 Long term (current) use of oral hypoglycemic drugs; Z72.0 Tobacco use; E78.2 Mixed hyperlipidemia
CPT/HCPCS: 73552; 73562; 93971; 99284

== ENCOUNTER 2024-11-18 10:14 | Outpatient (CLI) | payer BC, MEDICAID, SELFPAY ==
[2024-11-18 11:04] LABS: Basophils # 0.1 10^3/uL (0.0-0.1); Eosinophils # 0.4 10^3/uL (0.0-0.8); Eosinophils % 3.2 %; Hematocrit 40.7 % (36-47); Lymphocytes # 3.1 10^3/uL (0.8-4.8); Lymphocytes % 26.1 %; Mean Corpuscular HGB Conc 34.4 g/dL (30-55); Mean Corpuscular Hemoglobin 29.4 pg (27-33); Mean Corpuscular Volume 85.3 fl (85-98); Mean Platelet Volume 9.1 fL (7.4-10.4); Monocytes # 0.8 10^3/uL (0.2-0.9); Monocytes % 6.5 %; Neutrophils # 7.46 10^3/uL (1.8-7.7); Neutrophils % 62.9 %; Nucleated Red Blood Cells % 0 %; Platelet Count 338 10^3/cmm (157-399); Red Blood Count 4.77 10^6/uL (3.85-5.65); Red Cell Distribution Width 12.3 % (12.1-15.1); White Blood Count 11.86 10^3/uL (3.29-11.43)
[2024-11-18 11:33] LABS: Alanine Aminotransferase 14 U/L (0-33); Albumin Level 4.5 g/dL (3.5-5.2); Alkaline Phosphatase 107 U/L (35-105); Aspartate Amino Transferase 19 U/L (0-32); Blood Urea Nitrogen 13 mg/dL (6-20); Calcium 8.8 mg/dL (8.5-10.5); Carbon Dioxide 18 mmol/L (22-29); Chloride 100 mmol/L (98-107); Chol HDL Ratio 9.64 mg/dL (0.0-4.40); Cholesterol 270 mg/dL (0-200); Globulin 3.1 g/dL (1.3-4.6); Glomerular Filtration Rate 115.9 mL/min (90-130); Glucose 154 mg/dL (65-115); HDL Cholesterol 28 mg/dL (60-100); LDL Cholesterol Calculated 172 mg/dL (50-129); Osmolality Calculated 283 mOsm/kg (285-295); Sodium 135 mmol/L (136-145); Total Bilirubin 0.2 mg/dL (0.15-1.2); Total Protein 7.6 g/dL (6.6-8.7); Triglycerides 351 mg/dL (0-150); VLDL Cholestrol Calculation 70 mg/dL (0-30)
[2024-11-18 11:43] LABS: Anion Gap 20.8 (5-19); Potassium 3.8 mmol/L (3.5-5.1)
== END 2024-11-18 10:15 | disposition home or self-care (01) ==
LOC: LAB 10:15
PROVIDERS: PCP Nurse Practitioner; Visit Provider Nurse Practitioner
DX: I10 Essential (primary) hypertension (principal)
CPT/HCPCS: 36415; 80053; 80061; 85025

== ENCOUNTER → 2024-12-07 14:54 | Outpatient (BNVA) | payer BC, MEDICAID, SELFPAY | PROVIDERS: PCP Nurse Practitioner; Visit Provider Nurse Practitioner | DX: M25.562 Pain in left knee (principal); S83.207A Unspecified tear of unspecified meniscus, current injury, left knee, initial encounter; W19.XXXA Unspecified fall, initial encounter | CPT/HCPCS: 73560; 73565 ==

== ENCOUNTER 2024-12-16 14:45 | Outpatient (CLI) | payer BC, MEDICAID, SELFPAY ==
--- NOTE | 2024-12-16 14:30 | MR_ITS ---
WS: [id number] MRI LEFT KNEE HISTORY: left knee pain COMPARISON: Radiograph 12/07/2024 Anterior cruciate ligament: Intact. Posterior cruciate ligament: Intact. Medial collateral ligament: Fluid surrounding the proximal MCL. No tear identified. No separation from the meniscus. Posterior lateral corner structures: Thickening and increased T2 signal in the popliteus tendon adjacent to the femoral condyle. There is also marrow edema at the insertion site. Fibular collateral ligament appears intact. No marrow edema in the fibular head. Medial menisci: Intact. Normal signal, size and shape. Lateral meniscus: Intact. Normal signal, size and shape. Extensor mechanism: Distal quadriceps tendon and patellar tendons are intact. Fluid and soft tissue: Small suprapatellar joint effusion. No Ascencio's cyst. Osseous and articular structures: Patellofemoral compartment: Normal. Medial compartment: Minimal narrowing with mild fissuring of the cartilage. No underlying marrow edema or subchondral cysts. Lateral compartment: Very minimal narrowing with mild chondromalacia. No full- thickness cartilage defects or marrow edema along the articular surface. MR/MR knee LT wo con* [id number] IMPRESSION: 1. No ACL or meniscal tear. 2. Abnormal signal at the popliteus tendon insertion site to the lateral femor al condyle. There is a small amount of fluid in the proximal popliteus tendon b ut also underlying marrow edema consistent with a high-grade tear. 3. Mild MCL sprain.
== END 2024-12-16 14:46 | disposition home or self-care (01) ==
PROVIDERS: PCP Nurse Practitioner; Visit Provider Nurse Practitioner
DX: S83.412A Sprain of medial collateral ligament of left knee, initial encounter (principal); X58.XXXA Exposure to other specified factors, initial encounter; R93.6 Abnormal findings on diagnostic imaging of limbs; M25.462 Effusion, left knee; M94.262 Chondromalacia, left knee
CPT/HCPCS: 73721

== ENCOUNTER 2025-05-07 15:22 | Outpatient (CLI) | payer BC, MEDICAID, SELFPAY ==
--- NOTE | 2025-05-07 15:35 | XRR_ITS ---
PROCEDURE INFORMATION: Exam: XR Lumbosacral Spine Exam date and time: 05/07/2025 3:46 PM Age: 34 years old Clinical indication: Low back pain; Numbness and tingling pain in buttocks and shooting down lt leg; Additional info: M54.50 - low back pain, unspecified TECHNIQUE: Imaging protocol: Radiologic exam of the lumbosacral spine. Views: 2 or 3 views. COMPARISON: CR XR lumbar spine 2-3V* [id number] 04/20/2020 11:20 AM FINDINGS: Bones/joints: Normal. No acute fracture. Normal alignment. Soft tissues: Unremarkable. XR/XR lumbar spine 2-3V* [id number] IMPRESSION: No acute findings.
[2025-05-07 16:51] LABS: Estmated Average Glucose 105; Hemoglobin A1C 5.3 % (4.0-6.0)
[2025-05-07 17:06] LABS: Alanine Aminotransferase 22 U/L (0-33); Albumin Level 4.2 g/dL (3.5-5.2); Alkaline Phosphatase 49 U/L (35-105); Anion Gap 16.8 (5-19); Aspartate Amino Transferase 22 U/L (0-32); Blood Urea Nitrogen 16 mg/dL (6-20); Calcium 9.6 mg/dL (8.5-10.5); Carbon Dioxide 19 mmol/L (22-29); Chloride 106 mmol/L (98-107); Cholesterol 189 mg/dL (0-200); Globulin 3.3 g/dL (1.3-4.6); Glucose 131 mg/dL (65-115); HDL Cholesterol 29 mg/dL (60-100); Osmolality Calculated 289 mOsm/kg (285-295); Potassium 3.8 mmol/L (3.5-5.1); Sodium 138 mmol/L (136-145); Total Protein 7.5 g/dL (6.6-8.7); Triglycerides 221 mg/dL (0-150); VLDL Cholestrol Calculation 44 mg/dL (0-30)
== END 2025-05-07 15:23 | disposition home or self-care (01) ==
LOC: LAB 15:25
PROVIDERS: PCP Nurse Practitioner; Visit Provider Nurse Practitioner
DX: M54.42 Lumbago with sciatica, left side (principal); M54.41 Lumbago with sciatica, right side; E78.2 Mixed hyperlipidemia
CPT/HCPCS: 36415; 72100; 80053; 80061; 83036